=== PATIENT | female | born 1985 | race Caucasian/White ===

== ENCOUNTER → 2016-11-27 | Outpatient (CLI) | payer MEDICAID ==
[~2016-11-27] MED LIST: *ANUSOI; /BACL20TA PO; /CELE20CA OR; /DIVA50TA PO; /ESCI10TA PO; /ESOM40CA OR; /HALO1T OR; /IPRA3SP INH; /IPRAINH INH; /LINE60TA; /LORA10TA PO; /MIRT30TA OR; /MOM400 PO; /OMEP10CA OR; /ONDA4TA; /ROPI1TA PO; /ROPI25TA PO; /SUCR1TA; /SUCR1TA OR; /WARF5TA; /WARF5TA OR; ACET50TA PO; ACET65TA OR; ACIDTAB16 PO; ADDE10CA3; ALBU17IN2; ALBU17IN2 IN; ALBU17IN2 INH; ALBU2TA NEB; ALBUTEROL LIQ INH; ALCOHOL TOP; AMIT100T OR; AMO500; AMOXICILLIN; ASCO250C PO; ASCO250T PO; ATIV0.5T; ATIV0.5T3 PO; ATIV1TAB10 PO; ATIV1TAB2; ATIV1TAB2 OR; ATROVENT0.02% INH; AUGM875T27 PO; AVELOX PO; Ambien OR; Amoxicillin/Clavulanate Potas PO; Ativan OR; BACITAB PO; BACL10TA PO; BACL10TA2 PO; BACT400T OR; BACT800T OR; BACT800T5 PO; BACTRIMDS; BACTRIMDS PO; BACTROBAN; BENA25CA PO; BENA25CA2 PO; BISA10SU30 PR; BUTRAN TOP; CEFD1CAP8 PO; CEFD300CAP PO; CEFT500T PO; CEPH500T PO; CIPR25SS OR; CIPR500T19 OR; CIPRO500 PO; CLAR5CHW; CLAR5CHW OR; CLARITAN OR; CLARITIN10; CLARITIN10 PO; CLEO300C; CLIN300C OR; CLON0.5T PO; CLON2TAB OR; COLA100C PO; COLA50CA3 PO; COUM10TA; COUMADIN PO; CYCL10TA3 PO; CYCL5TAB PO; DALMANE; DALMANE OR; DANA200C; DAPTOMYCIN IV; DARVOCET-N PO; DEPA250T2; DEPA250T2 PO; DEPA250T32 PO; DEPA500T2 PO; DEPAKENE; DICLOFENAC SODIUM PR; DIFL50TA OR; DIFLUC150 PO; DIPH25CA PO; DIVA250T PO; DIVA250T7 PO; DIVA500T3 PO; DOCQ100C PO; DOCU100C PO; DOXE50CA2 OR; DOXY20TA OR; DRISDOL PO; ENOX40SY; ENOX40SY SC; ESCI10TA2 PO; FLAGYL500 PO; FLEEENE4 PR; FLUPHENAZINE PO; GEOD20CA14; GEOD40CA; GEODON20; GLUC1000; GLUC1000 OR; GLUC1VL SC; GLUC4CHW PO; GLUCULTRA TOPICAL; HABITROL2 TOPICAL; HALC0.25 OR; HUMA100I SC; HUMALOG SC; HYDR-3713 PO; HYDR5OI TOP; IBUP800T; IMIT100T; IMITREX100; INSULANT; INSULANT SC; INSULIN SQ; IPRASOL4 NEB; JANT7.5T; KEFL500C OR; KEFL500C7 PO; KEFLEX; KEFLEX500; KEPPRA PO; KLON0.5T OR; KLON0.5T PO; KLON1TAB OR; LAMI25TA PO; LAMO100T PO; LAMO10TA PO; LAMO1TAB PO; LAMO25TA2 PO; LANCETDEV -; LANTINJ4 SC; LANTUS SC; LEVA1.256 INH; LEVA12INH INH; LEVA25SO PO; LEVA750T OR; LEVA750T PO; LEVAQUI500; LEVAQUI500 PO; LIDO1DIS2 TD; LIORESAL PO; LORA-376 PO; LORA0.5T; LORA10TA2 PO; LORA1TAB OR; LORA1TAB12 PO; LORA2TA PO; LORA2TAB; LORA2TAB OR; LORAT; LORATIDINE OR; LOVENOX SC; Lantus SC; Lovenox SC; MAG400TA PO; MAXA10TA17 OR; MELA10TA PO; MELA1TAB15 PO; METF750T OR; METFORM100 PO; METFORM500 PO; METFORMIN OR; METO10TA2 OR; METO5TAB2; MIDOL; MORP15TA2 PO; MORP15TA4 OR; MORP15TASA PO; MORP30TA4 OR; MORP30TASA PO; MUCI600T34 PO; Metformin OR; NEUR100C OR; NEUR300C; NEUR400C; NEUR600T OR; NEURONTIN OR; NICO21DI4 TD; NUED20CA PO; NYAM10003 TOP; NYST100024 TOP; NYST10006 TOP; NYST10CR TOP; NYSTATINP; NYSTPOW4 TOP; OLAN10TA2 PO; OLAN5ZYD PO; OMEP40CA2 PO; ONDA1TAB15 PO; OXYC-208 PO; OXYC-274 PO; OXYC30TA4 PO; OXYCO5TA PO; PARO25TAB OR; PAXI10TA OR; PAXI20TA; PAXI20TA OR; PAXI30TA; PAXI40TA; PAXIL; PAXIL40; PERC5TAB8; PERC5TAB8 OR; PERC7.5T8 OR; PHEN 25 OR; PHEN 25 PO; PHENERGAN; PRED20TAB PO; PREG100CA OR; PREV15CA OR; PREV30CA6 PO; PRIL40CA; PRILOSECOT PO; PROT1TAB2 PO; PROV90AE; PROVERA10 PO; PULM0.5S IN; REME45TA OR; ROBA750T4 PO; ROCE1INJ IJ; ROPI0.25 PO; ROPI1TAB PO; ROXI1TAB2 PO; SAVE50TA PO; SAVELLA OR; SAVELLA PO; SENO8.6T9 PO; SEROQUE200; SEVELLA; SLO-MAG PO; TERAZOL3 VAGINALLY; TRAM50TA2 OR; TRAZ100T OR; TRAZO50TA PO; TYLE325T5 PO; TYLENOL; ULTRAM50 PO; VALI10TA OR; VALI5TAB OR; VANCOMYCIN IV; VENTAER IN; VICO5TAB; VICO5TAB OR; VICODIN OR; VICODIN PO; VITA1TAB23 PO; VITMTA PO; VOLT1GEL2 TOP; VOLT1GEL24 TOP; VOLTAREN PO; WARF1TAB OR; WARF5TAB66 PO; WARF7.5T17 PO; XANA0.25 PO; XARE20TA PO; XOPE1.252 IN; ZANA4TAB PO; ZANA6CAP PO; ZANT150T; ZANT150T OR; ZOFR20TA PO; ZOFR4SOL PO; ZOFR4TAB3 PO; ZOFR8TAB OR; ZYPR10TA PO; [UNRECOGNIZED DRUG - CODE]; [UNRECOGNIZED DRUG - CODE] IV; [UNRECOGNIZED DRUG - CODE] PO; [UNRECOGNIZED DRUG - CODE] TOP; [UNRECOGNIZED DRUG - OTHER]; [UNRECOGNIZED DRUG - OTHER]; [UNRECOGNIZED DRUG - OTHER] PO; [UNRECOGNIZED DRUG - OTHER] PO; claritan; insulin humalog; savella; savella OR
[2016-11-27 13:18] LABS: BASO % 0.6 % (0.0-1.0); EOS # 0.1 K/mm3 (0.0-0.50); EOS % 1.6 % (0.0-3.0); LARGE UNSTAINED CELL # 0.1 K/mm3 (0.0-0.4); LARGE UNSTAINED CELL % 1.3 % (0.0-4.0); LYMPH # 2.2 K/mm3 (1.5-6.5); LYMPH % 29.9 % (24.0-44.0); MEAN CORPUSCULAR HEMOGLOBIN 30.9 pg (27.0-33.0); MEAN CORPUSCULAR HGB CONC 32.7 g/dl (32.0-36.5); MEAN CORPUSCULAR VOLUME 94.5 fl (80.0-96.0); MONO # 0.4 K/mm3 (0.0-0.8); MONO % 6.1 % (0.0-5.0); NEUTROPHILS # 4.3 K/mm3 (1.8-7.7); NEUTROPHILS % 60.5 % (36.0-66.0); PLATELET COUNT, AUTOMATED 256 k/mm3 (150-450); RED CELL DISTRIBUTION WIDTH 13.7 % (11.5-14.5); WHITE BLOOD COUNT 7.1 K/mm3 (4.0-10.0)
[2016-11-27 13:58] LABS: ALBUMIN 3.9 GM/DL (3.2-5.2); ALBUMIN/GLOBULIN RATIO 1.05 (1.00-1.93); ALKALINE PHOSPHATASE 38 U/L (45-117); ALT/SGPT 33 U/L (12-78); ANION GAP 7 MEQ/L (8-16); AST/SGOT 34 U/L (15-37); BILIRUBIN,TOTAL 0.3 MG/DL (0.2-1.0); BLOOD UREA NITROGEN 15 MG/DL (7-18); CALCIUM LEVEL 8.8 MG/DL (8.5-10.1); CARBON DIOXIDE LEVEL 28 MEQ/L (21-32); CHLORIDE LEVEL 105 MEQ/L (98-107); CHOLESTEROL LEVEL 144 MG/DL (<200); CREATININE FOR GFR 0.74 MG/DL (0.55-1.02); GLOMERULAR FILTRATION RATE > 60.0 (>60); GLUCOSE, FASTING 121 MG/DL (70-105); POTASSIUM SERUM 4.9 MEQ/L (3.5-5.1); SODIUM LEVEL 140 MEQ/L (136-145); TOTAL PROTEIN 7.6 GM/DL (6.4-8.2); TRIGLYCERIDES LEVEL 81 MG/DL (<150)
== END ==
LOC: M LAB 12:11
PROVIDERS: ATTEND Nurse Practitioner Family
DX: D68.59 Other primary thrombophilia (principal); E11.9 Type 2 diabetes mellitus without complications

== ENCOUNTER → 2016-12-21 | Outpatient (CLI) | payer MEDICAID | LOC: M PT 14:26 | PROVIDERS: ATTEND Nurse Practitioner Family | DX: G82.50 Quadriplegia, unspecified (principal) | CPT/HCPCS: 97162; G8978; G8979; G8980 ==

== ENCOUNTER → 2017-02-26 | Outpatient (CLI) | payer MEDICAID ==
[~2017-02-26] MED LIST changes: +BENA25CA4 PO; -COLA100C PO; +COLA100C3 PO
[2017-02-26 13:21] LABS: BASO # 0.1 K/mm3 (0.0-0.2); BASO % 0.8 % (0.0-1.0); EOS # 0.1 K/mm3 (0.0-0.50); EOS % 0.9 % (0.0-3.0); LARGE UNSTAINED CELL # 0.1 K/mm3 (0.0-0.4); LARGE UNSTAINED CELL % 0.7 % (0.0-4.0); LYMPH # 1.8 K/mm3 (1.5-6.5); LYMPH % 24.9 % (24.0-44.0); MEAN CORPUSCULAR HEMOGLOBIN 30.9 pg (27.0-33.0); MEAN CORPUSCULAR HGB CONC 32.7 g/dl (32.0-36.5); MEAN CORPUSCULAR VOLUME 94.4 fl (80.0-96.0); MONO # 0.5 K/mm3 (0.0-0.8); MONO % 6.7 % (0.0-5.0); NEUTROPHILS # 4.7 K/mm3 (1.8-7.7); PLATELET COUNT, AUTOMATED 283 k/mm3 (150-450); RED CELL DISTRIBUTION WIDTH 13.2 % (11.5-14.5); WHITE BLOOD COUNT 7.1 K/mm3 (4.0-10.0)
[2017-02-26 14:02] LABS: ALBUMIN 3.9 GM/DL (3.2-5.2); ANION GAP 9 MEQ/L (8-16); BLOOD UREA NITROGEN 14 MG/DL (7-18); CALCIUM LEVEL 9.4 MG/DL (8.5-10.1); CARBON DIOXIDE LEVEL 27 MEQ/L (21-32); CHLORIDE LEVEL 104 MEQ/L (98-107); CREATININE FOR GFR 0.74 MG/DL (0.55-1.02); GLOMERULAR FILTRATION RATE > 60.0 (>60); GLUCOSE, FASTING 124 MG/DL (70-105); PHOSPHORUS LEVEL 3.4 MG/DL (2.5-4.9); POTASSIUM SERUM 4.5 MEQ/L (3.5-5.1); SODIUM LEVEL 140 MEQ/L (136-145)
--- NOTE | 2017-02-26 15:09 | REP ---
CHEST PORTABLE: REASON: Preop. COMPARISON: 07/29/2016 FINDINGS: The technique utilized in obtaining the radiograph has magnified the cardiac silhouette and accentuated the interstitial markings. The superior mediastinal structures are midline. The cardiac silhouette is unremarkable in size, shape, and position. The diaphragmatic surfaces of the lungs are regular, and the costophrenic angles are clear. The pulmonary torres are clear. The imaged osseous structures are intact. IMPRESSION: There is no acute cardiopulmonary disease. A tracheostomy tube is in place unchanged. Signed by Drew Storey DO 02/26/2017 05:02 P
--- NOTE | 2017-02-27 00:08 | ECGEPIP ---
Stationary ECG Study [facility] Test Date: 2017-02-26 Pat Name: ROSEMARIE ANGUIANO Department: Room: - Gender: F Target Network Analyst: SALVADOR : 1985 Requested By: Gold Jules Order Number: [id number] Reading MD: Scott Jefferson Measurements Intervals [place] Rate: 88 P: 48 AR: 166 QRS: 30 QRSD: 82 T: 13 QT: 352 QTc: 426 Interpretive Statements SINUS RHYTHM WITH SINUS ARRHYTHMIA LOW QRS VOLTAGE IN THE PRECORDIAL LEADS NONSPECIFIC T-WAVE ABNORMALITY COMPARED TO THE LAST 3 TRACINGS, HEART RATE IS NOW SLOWER Electronically Signed On 02-27-2017 0:08:29 EDT by Scott Jefferson
== END ==
LOC: M LAB 12:23
PROVIDERS: ATTEND Dentist Oral and Maxillofacial Surgery
DX: Z01.818 Encounter for other preprocedural examination (principal)

== ENCOUNTER → 2017-02-28 | Outpatient (REF) | payer MEDICAID | LOC: M LAB REF 15:10 | PROVIDERS: ATTEND Dentist Oral and Maxillofacial Surgery | DX: Z01.812 Encounter for preprocedural laboratory examination (principal) ==

== ENCOUNTER → 2017-03-12 | Day surgery (SDC) | payer MEDICAID ==
[~2017-03-12] VITALS: Ht 162.6 cm; Wt 112.5 kg
[~2017-03-12] MED LIST changes: +LIDOCAINE 2% INJ 100 MG/5 ML SDV (FOR ANES.) As Ordered ONE; +LIDOCAINE 2% W/ EPINEPHRINE 1.7 ML DENTAL INJ As Ordered ONE; +LR 1,000 ML IV ONE; +LR 1,000 ML IV SCH; +MIDAZOLAM INJ 2 MG/2 ML VIAL (J2250) As Ordered ONE; +MIDAZOLAM INJ 2 MG/2 ML VIAL (J2250) IV PRN; +ONDANSETRON 4MG/2ML VIAL (J2405) As Ordered ONE; +ONDANSETRON 4MG/2ML VIAL (J2405) IV PRN; +PROPOFOL 200 MG/20 ML VIAL As Ordered ONE; +ROCURONIUM BROMIDE 50 MG/5 ML VIAL As Ordered ONE; +fentaNYL 100 MCG/2 ML INJECTION (J3010) As Ordered ONE
[2017-03-12 06:49] LABS: CONTROL LINE HCG INT CTR LINE PRESENT
[2017-03-12] MEDS: fentaNYL 100 MCG/2 ML INJECTION (J3010) IV PRN ×2 (09:35→09:40)
[2017-03-12 11:00] VITALS: BP 142/97
--- NOTE | 2017-03-12 23:18 | RO ---
DATE OF PROCEDURE: 03/12/2017 PREPROCEDURE DIAGNOSIS: Carious and nonrestorable teeth #7, 8, 9, 10, 11. POSTPROCEDURE DIAGNOSIS: Carious and nonrestorable teeth #7, 8, 9, 10, 11. OPERATIVE PROCEDURE: Surgical removal of teeth as listed, 7, 8, 9, 10, 11 and buccal alveoloplasty. SURGEON: Gold Jules DMD EDGE BASTER: ANESTHESIA: General endotracheal. INDICATION: This patient is a 31-year-old female referred by general dentist for removal of these broken down nonrestorable teeth in a patient with a past medical history significant for diabetes, traumatic brain injury. The patient is wheelchair bound with tracheostomy in place, significant anxiety, dystonia, esophagitis, gastroesophageal reflux disease (GERD), hematologic problems, major depression, neurologic disorder, psychoses and patient is a quadriplegic with upper respiratory problems. The patient felt necessary to have this procedure performed in the operating room under general anesthesia. DESCRIPTION OF PROCEDURE: The patient was brought to the OR per anesthesia, placed supine upon the OR table. Wherein general anesthesia was undertaken by way of the tracheostomy without difficulty. After usual sterile prep and drape for intraoral procedure was performed, a throat pack was placed. 2% Xylocaine with 1:1,000 epinephrine was injected by way of infiltration fashion of approximately 3.5 mL buccal and palatally along the surgical site. #15 scalpel blade used to make a full thickness mucoperiosteal incision, carried down the area along the buccal sulcular gingiva of the aforementioned teeth. Buccal flap was then raised, the periosteal elevator exposing the buccal bone supporting the top of the teeth. Buccal bone was then removed as necessary for access and to mobilize the teeth. The teeth were then elevated and delivered without difficulty. The buccal bone was smooth. Alveoloplasty performed as necessary. The sockets were curetted, irrigated copiously, then closed with #3-0 gut continuous interlocking suture. At the termination of the procedure, the oropharynx was inspected, found to be free of debri. The throat pack was removed and the patient was awakened per anesthesia. ESTIMATED BLOOD LOSS: Approximately 5 mL. FLUIDS: 500 mL of crystalloid solution. COUNTS: Needle and sponge counts were correct. Teeth were sent for identification only to pathology. DISPOSITION: The patient was awakened by anesthesia since this was a general by way of trach. The patient was taken to the recovery room breathing spontaneously in stable condition.
== END | disposition home or self-care (01) ==
LOC: M SDC 05:42 → EEVIPCON 10:30
PROVIDERS: ATTEND Dentist Oral and Maxillofacial Surgery
DX: K02.9 Dental caries, unspecified (principal); E11.9 Type 2 diabetes mellitus without complications; G82.50 Quadriplegia, unspecified; G93.1 Anoxic brain damage, not elsewhere classified; G24.9 Dystonia, unspecified; F44.4 Conversion disorder with motor symptom or deficit; Z93.0 Tracheostomy status; Z99.3 Dependence on wheelchair; Z79.4 Long term (current) use of insulin; Z88.1 Allergy status to other antibiotic agents; Z88.8 Allergy status to other drugs, medicaments and biological substances; Z79.02 Long term (current) use of antithrombotics/antiplatelets; D68.59 Other primary thrombophilia; F33.41 Major depressive disorder, recurrent, in partial remission; Z79.899 Other long term (current) drug therapy; Z87.820 Personal history of traumatic brain injury
CPT/HCPCS: 36415; 84703; 88300; D7210; D7310; D9223; J2250; J2405; J3010

== ENCOUNTER 2017-05-05 07:35 | Emergency (ER) | payer MEDICAID ==
[~2017-05-05] VITALS: Ht 162.6 cm; Wt 115.6 kg
[~2017-05-05 07:35] MED LIST changes: -ACIDTAB16 PO; +ACIDTAB7 PO; -COLA100C3 PO; +COLA100C5 PO; -DOCU100C PO; +DOCU100C16 PO; +KEFL500C17 PO; -KEFL500C7 PO; -LEVA750T PO; +LEVA750T7 PO; -LIDOCAINE 2% INJ 100 MG/5 ML SDV (FOR ANES.) As Ordered ONE; -LIDOCAINE 2% W/ EPINEPHRINE 1.7 ML DENTAL INJ As Ordered ONE; -LORA-376 PO; +LORA0.5T11 PO; -LR 1,000 ML IV ONE; -LR 1,000 ML IV SCH; -MIDAZOLAM INJ 2 MG/2 ML VIAL (J2250) As Ordered ONE; -MIDAZOLAM INJ 2 MG/2 ML VIAL (J2250) IV PRN; +MUCI600T37 PO; +NYST1POW9 TOP; -ONDA1TAB15 PO; +ONDA4TAB5 PO; -ONDANSETRON 4MG/2ML VIAL (J2405) As Ordered ONE; -ONDANSETRON 4MG/2ML VIAL (J2405) IV PRN; -PROPOFOL 200 MG/20 ML VIAL As Ordered ONE; -ROCURONIUM BROMIDE 50 MG/5 ML VIAL As Ordered ONE; +VOLT1GEL15 TOP; -VOLT1GEL24 TOP; -fentaNYL 100 MCG/2 ML INJECTION (J3010) As Ordered ONE
[2017-05-05] MEDS ORDERED: HYDR-3713 PO (08:10)
[2017-05-05] MEDS ORDERED: MORPHINE 4 MG/ML 1ML SYRINGE IV ONE ×2 (08:15→11:00)
[2017-05-05] MEDS ORDERED: LORA0.5T11 PO (08:20)
[2017-05-05] MEDS ORDERED: TIZA4CAP3 PO (08:20)
[2017-05-05 08:37] LABS: BASO # 0.1 K/mm3 (0.0-0.2); BASO % 0.9 % (0.0-1.0); EOS # 0.2 K/mm3 (0.0-0.50); EOS % 2.4 % (0.0-3.0); LARGE UNSTAINED CELL # 0.2 K/mm3 (0.0-0.4); LARGE UNSTAINED CELL % 2.1 % (0.0-4.0); LYMPH # 2.1 K/mm3 (1.5-6.5); LYMPH % 29.3 % (24.0-44.0); MEAN CORPUSCULAR HEMOGLOBIN 30.6 pg (27.0-33.0); MEAN CORPUSCULAR HGB CONC 32.8 g/dl (32.0-36.5); MEAN CORPUSCULAR VOLUME 93.5 fl (80.0-96.0); MONO # 0.5 K/mm3 (0.0-0.8); MONO % 6.9 % (0.0-5.0); NEUTROPHILS # 4.2 K/mm3 (1.8-7.7); NEUTROPHILS % 58.4 % (36.0-66.0); PLATELET COUNT, AUTOMATED 300 k/mm3 (150-450); RED CELL DISTRIBUTION WIDTH 13.2 % (11.5-14.5); WHITE BLOOD COUNT 7.2 K/mm3 (4.0-10.0)
[2017-05-05 08:43] LABS: INR 1.39
[2017-05-05 08:45] LABS: ANION GAP 8 MEQ/L (8-16); BLOOD UREA NITROGEN 16 MG/DL (7-18); CALCIUM LEVEL 8.8 MG/DL (8.5-10.1); CARBON DIOXIDE LEVEL 25 MEQ/L (21-32); CHLORIDE LEVEL 105 MEQ/L (98-107); CREATININE FOR GFR 0.74 MG/DL (0.55-1.02); GLOMERULAR FILTRATION RATE > 60.0 (>60); GLUCOSE, FASTING 163 MG/DL (70-105); SODIUM LEVEL 138 MEQ/L (136-145)
--- NOTE | 2017-05-05 08:53 | REP ---
CHEST, TWO VIEWS: COMPARISON: 02/26/2017. There is no evidence of acute infiltrate. No pleural effusion is seen. The heart is normal in size. The mediastinal silhouette is unremarkable. The visualized osseous structures are intact. Tracheostomy tube is noted in place. IMPRESSION: No acute pulmonary disease. Signed by Roel Weber MD 05/05/2017 05:35 P
[2017-05-05] MEDS ORDERED: ISOVUE-370 76% 100ML VIAL (Q9967) As Ordered ONE (09:46)
--- NOTE | 2017-05-05 11:32 | REP ---
CT ANGIO CHEST: HISTORY: Chest pain. CONTRAST: Isovue 370, 75 mL. The examination is limited secondary to technical difficulty. There are no filling defects in the main or proximal right and left pulmonary arteries. Branches distal to the proximal right and left pulmonary arteries are very poorly seen. Emboli cannot be excluded in these vessels. The lungs are clear. There is no pleural effusion. There is no mediastinal mass. The heart is normal in size. IMPRESSION: Very limited examination demonstrating no pulmonary embolism in the main or proximal right and left pulmonary arteries. Signed by Ken Cruz MD 05/05/2017 11:37 A
[2017-05-05 14:23] VITALS: BP 124/78
--- NOTE | 2017-05-05 21:46 | ECGEPIP ---
Stationary ECG Study [facility] - ED Test Date: 2017-05-05 Pat Name: ROSEMARIE ANGUIANO Department: Room: - Gender: F Child Protective Investigator: gonzalo : 1985 Requested By: LAITH Zapien Order Number: [id number] Reading MD: Zayda Calle Measurements Intervals [place] Rate: 121 P: 42 VT: 171 QRS: 18 QRSD: 79 T: 44 QT: 420 QTc: 596 Interpretive Statements SINUS TACHYCARDIA NONSPECIFIC T-WAVE ABNORMALITY ABNORMAL RHYTHM ECG INCREASED RATE 02/26/17 Electronically Signed On 05-05-2017 21:45:48 EDT by Zayda Calle
--- NOTE | 2017-05-05 21:59 | ECGEPIP ---
Stationary ECG Study [facility] - ED Test Date: 2017-05-05 Pat Name: ROSEMARIE ANGUIANO Department: Room: - Gender: F Fur Mixer Operator: pratik : 1985 Requested By: LAITH Zapien Order Number: [id number] Reading MD: Zayda Calle Measurements Intervals [place] Rate: 98 P: 36 [place]: 176 QRS: 13 QRSD: 82 T: 17 QT: 332 QTc: 425 Interpretive Statements SINUS RHYTHM LOW QRS VOLTAGE IN PRECORDIAL LEADS PRWP NSTTW ABNORMALITY Electronically Signed On 05-05-2017 21:58:58 EDT by Zayda Calle
== END 2017-05-05 14:44 | disposition home or self-care (01) ==
LOC: M ED 07:35 → EDBD 07:35 → M ED 14:44
DX: R07.89 Other chest pain (principal); E11.9 Type 2 diabetes mellitus without complications; J45.909 Unspecified asthma, uncomplicated; E28.2 Polycystic ovarian syndrome; Z86.718 Personal history of other venous thrombosis and embolism; Z88.1 Allergy status to other antibiotic agents; Z91.048 Other nonmedicinal substance allergy status; Z79.4 Long term (current) use of insulin; Z79.899 Other long term (current) drug therapy
CPT/HCPCS: 36415; 71020; 71275; 80048; 80164; 82550; 82553; 83880; 85025; 85610; 85730; 93005; 93041; 94760; 96374; 96376; 99285; Q9967

== ENCOUNTER 2017-07-16 15:12 | Emergency (ER) | payer MEDICAID ==
[~2017-07-16] VITALS: Ht 162.6 cm; Wt 115.0 kg
[~2017-07-16 15:12] MED LIST changes: +TIZA4CAP3 PO
[2017-07-16] MEDS ORDERED: LATU20TA PO (15:26)
[2017-07-16] MEDS ORDERED: DEPA500T2 PO (15:26)
[2017-07-16] MEDS ORDERED: AUGM875T28 PO (18:16)
[2017-07-16] MEDS ORDERED: FLON1SPR (18:16)
[2017-07-16 18:28] VITALS: BP 136/88
== END 2017-07-16 18:30 | disposition home or self-care (01) ==
LOC: M ED 15:12
DX: J01.00 Acute maxillary sinusitis, unspecified (principal); E11.9 Type 2 diabetes mellitus without complications; G93.1 Anoxic brain damage, not elsewhere classified; Z79.4 Long term (current) use of insulin; Z79.899 Other long term (current) drug therapy; Z91.89 Other specified personal risk factors, not elsewhere classified; Z88.8 Allergy status to other drugs, medicaments and biological substances; Z88.1 Allergy status to other antibiotic agents

== ENCOUNTER 2017-09-07 12:23 | Inpatient (IN) | payer MEDICAID ==
[~2017-09-07] VITALS: Ht 162.6 cm; Wt 120.7 kg
[~2017-09-07 12:23] MED LIST changes: +AUGM875T28 PO; +FLON1SPR; +LATU20TA PO
--- NOTE | 2017-09-07 12:56 | REP ---
Clinical: Dyspnea. Cough . Comparison: 05/05/2017 . Findings: The mediastinum and cardiac silhouette are stable and within normal limits for portable technique. Tracheostomy overlies the airway and appears stable. The lung torres are clear without acute consolidation, effusion, or pneumothorax. Skeletal structures are intact. Impression: No acute cardiopulmonary process appreciated. Signed by Eben Alvarez MD 09/07/2017 12:47 P
[2017-09-07 13:10] LABS: BASO # 0.1 10^3/uL (0.0-0.2); BASO % 0.7 % (0.0-1.0); EOS # 0.1 10^3/uL (0.0-0.50); IMMATURE GRANULOCYTE % 0.2 % (0-0); LYMPH # 1.8 10^3/uL (1.5-4.5); LYMPH % 22.4 % (24.0-44.0); MEAN CORPUSCULAR HEMOGLOBIN 29.6 pg (27.0-33.0); MEAN CORPUSCULAR HGB CONC 32.5 g/dl (32.0-36.5); MEAN CORPUSCULAR VOLUME 91.1 fl (80.0-96.0); MONO # 0.6 10^3/uL (0.0-0.8); MONO % 7.6 % (0.0-5.0); NEUTROPHILS # 5.5 10^3/uL (1.8-7.7); NEUTROPHILS % 68.1 % (36.0-66.0); PLATELET COUNT, AUTOMATED 327 10^3/uL (150-450); RED CELL DISTRIBUTION WIDTH 13.1 % (11.5-14.5)
[2017-09-07] MEDS ORDERED: MORPHINE 2 MG/ML 1ML SYRINGE IV ONE (13:15)
[2017-09-07] MEDS ORDERED: NS 1,000 ML IV ONE (13:15)
[2017-09-07 13:35] LABS: ALBUMIN 3.6 GM/DL (3.2-5.2); ALKALINE PHOSPHATASE 46 U/L (45-117); ALT/SGPT 21 U/L (12-78); ANION GAP 12 MEQ/L (8-16); AST/SGOT 10 U/L (7-37); BILIRUBIN,DIRECT < 0.1 MG/DL (0.0-0.2); BILIRUBIN,TOTAL 0.3 MG/DL (0.2-1.0); BLOOD UREA NITROGEN 12 MG/DL (7-18); CALCIUM LEVEL 8.8 MG/DL (8.5-10.1); CARBON DIOXIDE LEVEL 24 MEQ/L (21-32); CHLORIDE LEVEL 104 MEQ/L (98-107); CREATININE FOR GFR 0.74 MG/DL (0.55-1.02); GLOMERULAR FILTRATION RATE > 60.0 (>60); GLUCOSE, FASTING 208 MG/DL (70-105); SODIUM LEVEL 140 MEQ/L (136-145); TOTAL PROTEIN 7.2 GM/DL (6.4-8.2)
[2017-09-07 13:41] LABS: CONTROL LINE HCG INT CTR LINE PRESENT
[2017-09-07] MEDS ORDERED: ONDANSETRON 4MG/2ML VIAL (J2405) IV ONE (13:45)
[2017-09-07] MEDS: LEVALBUTEROL 1.25 MG/0.5 ML CONCENTRATE NEB NEB PRN ×2 (14:03→14:04)
[2017-09-07] MEDS ORDERED: ISOVUE-370 76% 100ML VIAL (Q9967) As Ordered ONE (14:28)
--- NOTE | 2017-09-07 16:15 | REP ---
Clinical: Shortness of breath. History of pulmonary embolus. Technique: Axial contrast enhanced images from the thoracic inlet to the upper abdomen using 100 ml Isovue 370 intravenous contrast material with multiplanar MIP re-formations. Comparison: 05/05/2017. Findings: Examination is limited by respiratory motion artifact. While no significant pulmonary emboli are identified in the main and first/second order pulmonary arteries, small emboli to the distal branches in the right and left lower lobes cannot definitively be excluded and may represent acute and/or chronic changes given the patient's history of prior pulmonary embolus. The lung torres are clear and without consolidation, pleural effusion or pneumothorax. Tracheobronchial tree is patent. No adenopathy. Mediastinum demonstrates normal thoracic aorta and heart/pericardium. Impression: 1. Somewhat limited examination. No definite pulmonary embolus in the main and first/second order pulmonary arteries although small acute and/or chronic emboli in terminal branches of the lower lobes cannot be excluded. 2. No acute mediastinal or pleuroparenchymal process otherwise appreciated. Signed by Eben Alvarez MD 09/07/2017 04:06 P
[2017-09-07] MEDS ORDERED: IPRATROPIUM 0.5MG/ALBUTEROL 2.5MG INH SOL UD 3ML (DUONEB)(J7620) NEB PRN (17:15)
[2017-09-07] MEDS ORDERED: GLUCOSE 4 GM CHEW TABLET PO PRN (17:30)
[2017-09-07] MEDS ORDERED: GLUCAGON FOR INJ 1 MG VIAL (J1610) SC PRN (17:30)
[2017-09-07] MEDS ORDERED: DEXTROSE 50% 50 ML SYRINGE IV PRN (17:30)
[2017-09-07] MEDS ORDERED: INSULANT SC (17:43)
[2017-09-07] MEDS ORDERED: CITA10TA5 PO (17:43)
[2017-09-07] MEDS ORDERED: LORA1TAB12 PO (17:43)
[2017-09-07] MEDS ORDERED: REQU1TAB15 PO (17:43)
[2017-09-07] MEDS ORDERED: NORC1TAB4 PO (17:44)
[2017-09-07] MEDS ORDERED: FLON1SPR (17:44)
[2017-09-07] MEDS ORDERED: NORCO, ANEXSIA 5/325MG TABLET (HYDROcodone/ACETAMINOPHEN) PO PRN (18:00)
[2017-09-07] MEDS ORDERED: DOCUSATE SODIUM 100 MG CAP PO PRN (18:00)
[2017-09-07] MEDS ORDERED: LEVALBUTEROL 1.25 MG/0.5 ML CONCENTRATE NEB INH PRN (18:00)
[2017-09-07] MEDS ORDERED: guaiFENesin ER 600 MG TAB PO PRN (18:00)
[2017-09-07] MEDS ORDERED: NYSTATIN 100,000 UNITS/GM TOPICAL PWD 15 GM TOP PRN (18:00)
[2017-09-07] MEDS ORDERED: ONDANSETRON 4 MG TAB (S0181) PO PRN (18:00)
--- NOTE | 2017-09-07 18:13 | HPEPDOC ---
General Date of Admission 09/07/2017 Primary Care Physician: Ray Britton MD Attending Physician: NIMCO HOYT MD Chief Complaint The patient is a 32-year-old female admitted with a reason for visit of Diff Breathing. Source: Patient, Family, RN notes reviewed, Old records Exam Limitations: Language barrier (Tracheostomy) Timing/Duration: 24 hours Associated Symptoms: Cough, Shortness of breath, Weakness, Dizziness History of Present Illness Ms. Ayon is a 32-year-old female who presents to [facility]'s Emergency Department with shortness of breath and cough. Patient is accompanied by her psych specialist. Past medical history is significant for: diabetes mellitus type II, factor V Leiden heterozygous with protein C deficiency, pulmonary embolism and deep venous thrombosis, depression, recurrent suicidality, polycystic ovarian syndrome, non-alcoholic steatohepatitis, anxiety, post-traumatic stress disorder , muscle spasms, mood swings, pilonidal cyst abscess, impacted tooth, acute appendicitis, recurrent urinary tract infection, hidradenitis of right thigh and left breast, seroma of right thigh, abscess of left thigh and axilla, necrobiosis lipoidica diabeticorum. Residential Real Estate Agent states that patient awoke around 8AM and was not feeling well. She requested a Tylenol and went back to bed. She arose again at 11:30AM and had difficulty breathing with shortness of breath and cough. No pulse oximetry reading obtained at home. Residential Real Estate Agent obtained suctioning equipment and reported some resistance with attempting to clear tracheostomy which the psych specialist thinks might have been a mucous plug. Patient's breathing improved, but psych specialist still felt it prudent to be evaluated. EMS were called. Patient admits to left-sided anterior chest pain that radiates around to her back. Residential Real Estate Agent attributes it to her continual coughing. Patient further admits to itchy/watery eyes with runny nose, post-nasal drip, and sore throat. Admits to weakness, dizziness, stress urinary incontinence. Denies arthralgias , myalgias, fever, night sweats, chills, peripheral edema, lightheadedness, dysuria, hematuria, diarrhea, constipation, hematemesis, epistaxis, melena, hematochezia. Emergency department evaluation included CT angiogram of the chest which was negative for pulmonary embolism. Patient was slightly tachycardiac at 105. Positive for lactic acidosis. Chest x-ray was negative. Respiratory and blood cultures are pending. CBC and CMP were within normal range. HCG was negative. Hospitalist service was consulted and patient was admitted for further medical management. Home Medications Scheduled (Nuedexta 20-10 mg) 1 Cap Cap, 1 CAP PO BID, (Reported) (Flonase Allergy Relief) 50 Mcg/Act Spr, 50 MCG NA QHS Amoxicillin/Clavulanate Potas (Augmentin 875-125 mg) 1 Tab Tab, 875 MG PO BID Diphenhydramine HCl (Benadryl Allergy) 25 Mg Cap, 25 MG PO PRN, (Reported) Divalproex Sodium (Depakote ER) 500 Mg Tab, 1,000 MG PO BID, (Reported) Escitalopram Oxalate (Escitalopram Oxalate) 10 Mg Tab, 10 MG PO DAILY, (Reported ) Insulin Glargine (Lantus Solostar) 100 Unit/Ml Inj, 10 UNITS SC QHS Lamotrigine (Lamotrigine) 100 Mg Tab, 100 MG PO BID, (Reported) Loratadine (Loratadine) 10 Mg Tab, 10 MG PO DAILY, (Reported) Lorazepam (Lorazepam) 0.5 Mg Tab, 0.5 MG PO TID, (Reported) Lurasidone Hydrochloride (Latuda) 20 Mg Tab, 1 TAB PO DAILY, (Reported) Melatonin (Melatonin) 10 Mg Tab, 10 MG PO QHS, (Reported) Olanzapine (Olanzapine) 10 Mg Tab, 10 MG PO QHS, (Reported) Omeprazole (Omeprazole) 40 Mg Cap, 40 MG PO DAILY, (Reported) Rivaroxaban (Xarelto) 20 Mg Tab, 20 MG PO QHS, (Reported) Ropinirole Hydrochloride (Ropinirole HCl) 0.25 Mg Tab, 0.25 MG PO TID, (Reported ) Tizanidine Hydrochloride (Tizanidine HCl) 4 Mg Cap, 8 MG PO TID, (Reported) Scheduled PRN Docusate Sodium (Colace) 100 Mg Cap, 100 MG PO DAILY PRN for CONSTIPATION, ( Reported) Guaifenesin (Mucinex) 600 Mg Tab, 600 MG PO BID PRN for CHEST CONGESTION, ( Reported) Levalbuterol Hydrochloride (Levalbuterol HCl) 1.25 Mg/3 Ml Neb, 1.25 MG INH Q2H PRN for SHORTNESS OF BREATH, (Reported) Nystatin (Nystatin Powder) 100,000 Unit/Gm Pow, 1 DOSE TOP BID PRN for RASH/ ITCHING, (Reported) APPLY TO UNDER BREASTS AND GROIN AREA Ondansetron HCl (Zofran) 4 Mg Tab, 4 MG PO for NAUSEA OR VOMITING, (Reported) Allergies Coded Allergies: Pregabalin (Verified Allergy, Severe, THROAT SWELLING, 01/23/13) TAPE (Verified Allergy, Mild, PLASTIC TAPE CAUSES RASH, 05/05/17) Doxycycline (Unverified Allergy, Unknown, rash, 07/14/15) Tetracycline (Verified Adverse Reaction, Severe, SUICIDAL , 06/30/13) Varenicline (Verified Adverse Reaction, Intermediate, ALTERED MENTAL STATUS, 01/23/13) Linezolid (Verified Adverse Reaction, Mild, GI UPSET,DIARRHEA, 06/30/13) Past Medical History Medical History 1. Diabetes mellitus type II 2. Factor V Leiden heterozygous with protein C deficiency 3. Pulmonary embolism and deep venous thrombosis 4. Depression 5. Recurrent suicidality 6. Polycystic ovarian syndrome 7. Non-alcoholic steatohepatitis 8. Anxiety 9. Post-traumatic stress disorder 10. Muscle spasms 11. Mood swings 12. Pilonidal cyst abscess 13. Impacted tooth 14. Acute appendicitis 15. Recurrent urinary tract infection 16. Hidradenitis of right thigh and left breast 17. Seroma of right thigh 18. Abscess of left thigh and axilla 19. Necrobiosis lipoidica diabeticorum Surgical History 1. Tracheostomy with 6 tracheostomy changes 2. Fiberoptic bronchoscopy 5 3. Left port placement 4. Left radial arterial line placement 5. Upper endoscopy 6. Pilonidal cyst excision 7. Impacted tooth removal 8. Right thigh excisions 9. Intubation 10. Gastric biopsy due to prolonged intubation 11. Appendectomy 12. Surgical teeth removal 13. Cystourethroscopy 14. Excision of left breast abscess Family History Father: , 56, factor V Leiden/blood clots Mother: unknown health history Brothers - Eben: Alive, 34, healthy - Wiley: Alive, 33, unknown health history Step-sisters: 8 total, alive, unknown health history No children Social History Lives at home with psych specialist that has assumed the "mother" role. Uses wheelchair and is able to stand, but no ambulation. Admits to three dogs in the home. No children. Is socially active and attends all outings with her psych specialist. Has travelled extensively domestically. Former tobacco user, 1 PPD for 6 years, quit 6 years ago. Former alcohol use, 12-pack of beer several times a week. Denies illicit drug use. Review of Symptoms Constitutional: Reports: Weakness, Denies: Chills, Fever, Night Sweats ENT: Reports: Post Nasal Drip, Sore Throat, Denies: Head Aches, Epistaxis Skin: Denies: Rash, Lesions, Bruising Pulmonary: Reports: Dyspnea, Cough, Denies: Pleuritic Chest Pain Cardiovascular: Reports: Chest Pain (left anterior chest with radiation to back ), Denies: Edema, Lt Headedness Gastrointestinal: Denies: Nausea, Vomiting, Abdominal Pain, Diarrhea, Constipation, Melena, Hematochezia Genitourinary: Reports: Incontinence (stress), Denies: Dysuria, Hematuria Hematologic: Denies: Bruising, Bleeding Excessively Musculoskeletal: Denies: Neck Pain, Back Pain, Joint Pain, Muscle Pain Neurological: Reports: Weakness, Denies: Numbness Physical Examination General Exam: Positive: Alert, Cooperative, Other (patient is grubby-appearing) Eye Exam: Positive: PERRLA, Conjunctiva & lids normal, EOMI, Negative: Sclera icteric, Ptosis ENT Exam: Positive: Atraumatic, Mucous membr. moist/pink, Pharynx Normal, Tongue Midline, Nares Patent, Other ENT (tracheostomy with nonrebreather), Negative: Pharyngeal Edema Neck Exam: Positive: Supple, Negative: JVD, thyromegaly, +2 carotid pulse wo bruit, Lymphadenopathy Chest Exam: Positive: Clear to auscultation, Normal air movement, Negative: Rales, Rhonchi, Wheezing Heart Exam: Positive: Rate Normal, Tachycardic, Regular Rhythm, Normal S1, Normal S2, Negative: Gallops, Murmurs, Rubs Telemetry: Positive: Sinus, Tachycardia Abdomen Exam: Positive: BS Hypoactive, Soft, Negative: Tenderness, Hepatospenomegaly, Mass Extremity Exam: Positive: Normal pulses (tachycardic), Negative: Clubbing, Cyanosis, Edema, Tenderness, Swelling Skin Exam: Positive: Nl turgor and temperature, Lesion (multiple erythematous excoriated lesions noted on face, facial hairs present, hairs thinning, abdominal street present), Negative: Rash Neuro Exam: Negative: Normal Speech (tracheostomy) Other physical findings Chest x-ray IMPRESSION: No acute cardiopulmonary process appreciated. CT chest angiogram IMPRESSION: 1. Somewhat limited examination. No definite pulmonary embolus in the main and first/second order pulmonary arteries although small acute and/or chronic emboli in terminal branches of the lower lobes cannot be excluded. 2. No acute mediastinal or pleuroparenchymal process otherwise appreciated. Vital Signs Vital Signs Date Time Temp Pulse Resp B/P (MAP) Pulse Ox O2 Delivery O2 Flow Rate FiO2 09/07/17 15:45 98 22 113/59 (77) 99 Trach Collar 15.0 Laboratory Data Labs 24H Laboratory Tests 2 09/07/17 12:57: Immature Granulocyte % (Auto) 0.2H, White Blood Count 8.0, Red Blood Count 4.16 , Hemoglobin 12.3, Hematocrit 37.9, Mean Corpuscular Volume 91.1, Mean Corpuscular Hemoglobin 29.6, Mean Corpuscular Hemoglobin Concent 32.5, Red Cell Distribution Width 13.1, Platelet Count 327, Neutrophils (%) (Auto) 68.1H, Lymphocytes (%) (Auto) 22.4L, Monocytes (%) (Auto) 7.6H, Eosinophils (%) (Auto) 1.0, Basophils (%) (Auto) 0.7, Neutrophils # (Auto) 5.5, Lymphocytes # (Auto) 1.8, Monocytes # (Auto) 0.6, Eosinophils # (Auto) 0.1, Basophils # (Auto) 0.1, Immature Granulocyte # (Auto) 0.0, Nucleated Red Blood Cells % (auto) 0.0, Anion Gap 12, Glomerular Filtration Rate > 60.0, Lactic Acid Level 5.1*H, Calcium Level 8.8, Aspartate Amino Transf (AST/SGOT) 10, Alanine Aminotransferase (ALT/SGPT) 21, Alkaline Phosphatase 46, Total Bilirubin 0.3, Direct Bilirubin < 0.1, Total Creatine Kinase 88, Creatine Kinase MB 2.4, Creatine Kinase MB Relative Index 2.72, Troponin I < 0.02, Total Protein 7.2, Albumin 3.6, Albumin/Globulin Ratio 1.00, Thyroid Stimulating Hormone (TSH) 0.768 09/07/17 13:15: Human Chorionic Gonadotropin, Qual NEGATIVE CBC/BMP Laboratory Tests 09/07/17 12:57 Red Blood Count 4.16, Mean Corpuscular Volume 91.1, Mean Corpuscular Hemoglobin 29.6, Mean Corpuscular Hemoglobin Concent 32.5, Red Cell Distribution Width 13.1 , Neutrophils (%) (Auto) 68.1 H, Lymphocytes (%) (Auto) 22.4 L, Monocytes (%) ( Auto) 7.6 H, Eosinophils (%) (Auto) 1.0, Basophils (%) (Auto) 0.7, Neutrophils # (Auto) 5.5, Lymphocytes # (Auto) 1.8, Monocytes # (Auto) 0.6, Eosinophils # ( Auto) 0.1, Basophils # (Auto) 0.1 Microbiology Microbiology 09/07/17 Blood Culture, Received Pending 09/07/17 Respiratory Virus Panel (PCR) (MARIAN) - Final, Complete 09/07/17 Gram Stain - Final, Resulted 09/07/17 Sputum Culture, Resulted Pending Plan / VTE VTE Prophylaxis Ordered?: Yes (Xarelto 20mg QHS) Plan Plan Bronchitis with mucous plugging - Obtain respiratory panel, blood and sputum cultures - Consult ENT - Obtain labs: CBC with differential, BMP, CRP - Suction tracheostomy with saline - Administer DuoNebs - No need for steroids or antibiotics at this time - Continuous pulse oximetry, wean FiO2, titrate oxygen to 92% Chest pain - Admit to PCU - Obtain serial cardiac makers Diabetes mellitus, type II - Consistent carbohydrate diet - Continue home dose of Lantus Depression/anxiety/PTSD/recurrent suicidality - Continue home medication regimen - Place a sitter with instructions to keep patient's arms by her side which may require sitter to gently place patient's arms by her side Disposition Admit: Progressive care unit Anticipated hospitalization: 2 nights Attending: Dr. Wheeler Diet: Continue Current (Consistent carbohdyrate diet) Activity: Continue Current Respiratory: Wean Oxygen (Titrate to 92%, wean FiO2) Diagnostics: Check Labs, Repeat Labs in AM, Obtain Cultures Anticipated Discharge: Home EUGENIE MENDEZ-Marleny Sep 07, 2017 18:13
[2017-09-07] MEDS: HumaLOG INSULIN (NovoLOG) PER UNIT SC SCH (18:20)
[2017-09-07 20:57] VITALS: BP 179/108
[2017-09-07] MEDS ORDERED: LEVEMIR (INSULIN DETEMIR) 1 UNITS/0.01ML SC SCH (21:00)
[2017-09-07] MEDS ORDERED: OLANZapine 10 MG TAB PO SCH (21:00)
[2017-09-07] MEDS ORDERED: FLUTICASONE PROP 0.05% NASAL SPRAY 16 GM (FLONASE) SCH (21:00)
[2017-09-07] MEDS ORDERED: HumaLOG INSULIN (NovoLOG) PER UNIT SC SCH (21:00)
[2017-09-07] MEDS ORDERED: LURASIDONE 20 MG TAB (LATUDA) PO SCH (21:00)
[2017-09-07] MEDS ORDERED: RIVAROXABAN 20 MG TAB (XARELTO) PO SCH (21:00)
[2017-09-07] MEDS ORDERED: rOPINIRole 0.25 MG TAB(REQUIP) PO SCH (21:00)
[2017-09-07] MEDS: LORazepam 1 MG TAB PO SCH (21:52)
[2017-09-07] MEDS: DIVALPROEX 500MG *ER* TAB PO SCH (21:52)
[2017-09-07] MEDS: diphenhydrAMINE 25 MG CAP PO SCH (21:52)
[2017-09-07] MEDS: tiZANidine 4 MG TAB PO SCH (21:53)
[2017-09-07] MEDS: lamoTRIgine 100MG TAB PO SCH (21:53)
[2017-09-07] MEDS: IPRATROPIUM 0.5MG/ALBUTEROL 2.5MG INH SOL UD 3ML (DUONEB)(J7620) NEB SCH (23:40)
[2017-09-07 23:59] VITALS: BP 116/62
[2017-09-08] MEDS: IPRATROPIUM 0.5MG/ALBUTEROL 2.5MG INH SOL UD 3ML (DUONEB)(J7620) NEB SCH ×2 (02:00→07:21)
[2017-09-08 04:00] VITALS: BP 111/66
[2017-09-08 06:40] LABS: BASO # 0.1 10^3/uL (0.0-0.2); BASO % 0.8 % (0.0-1.0); EOS # 0.1 10^3/uL (0.0-0.50); EOS % 1.6 % (0.0-3.0); IMMATURE GRANULOCYTE % 0.3 % (0-0); LYMPH # 2.2 10^3/uL (1.5-4.5); LYMPH % 34.8 % (24.0-44.0); MEAN CORPUSCULAR HEMOGLOBIN 29.1 pg (27.0-33.0); MEAN CORPUSCULAR HGB CONC 31.8 g/dl (32.0-36.5); MEAN CORPUSCULAR VOLUME 91.6 fl (80.0-96.0); MONO # 0.6 10^3/uL (0.0-0.8); MONO % 9.8 % (0.0-5.0); NEUTROPHILS # 3.3 10^3/uL (1.8-7.7); NEUTROPHILS % 52.7 % (36.0-66.0); PLATELET COUNT, AUTOMATED 294 10^3/uL (150-450); WHITE BLOOD COUNT 6.2 10^3/uL (4.0-10.0)
[2017-09-08 07:16] LABS: ANION GAP 6 MEQ/L (8-16); BLOOD UREA NITROGEN 12 MG/DL (7-18); CALCIUM LEVEL 8.6 MG/DL (8.5-10.1); CARBON DIOXIDE LEVEL 31 MEQ/L (21-32); CHLORIDE LEVEL 103 MEQ/L (98-107); CREATININE FOR GFR 0.63 MG/DL (0.55-1.02); GLOMERULAR FILTRATION RATE > 60.0 (>60); GLUCOSE, FASTING 132 MG/DL (70-105); SODIUM LEVEL 140 MEQ/L (136-145)
[2017-09-08 07:58] VITALS: BP 133/101
[2017-09-08 07:59] VITALS: BP 138/95
[2017-09-08] MEDS ORDERED: OMEPRAZOLE 20 MG CAP PO SCH (09:00)
[2017-09-08] MEDS ORDERED: LORATADINE 10 MG TAB PO SCH (09:00)
[2017-09-08] MEDS ORDERED: CitaloPRAM (CeleXA) 10 MG TABLET PO SCH (09:00)
[2017-09-08] MEDS ORDERED: ENOXAPARIN 40 MG/0.4 ML SYRINGE (J1650) SC SCH (09:00)
[2017-09-08] MEDS: HumaLOG INSULIN (NovoLOG) PER UNIT SC SCH (09:35)
[2017-09-08] MEDS: lamoTRIgine 100MG TAB PO SCH (09:36)
[2017-09-08] MEDS: tiZANidine 4 MG TAB PO SCH (09:36)
[2017-09-08] MEDS: diphenhydrAMINE 25 MG CAP PO SCH (09:36)
[2017-09-08] MEDS: DIVALPROEX 500MG *ER* TAB PO SCH (09:36)
[2017-09-08] MEDS: LORazepam 1 MG TAB PO SCH (09:36)
[2017-09-08] MEDS ORDERED: LIDOCAINE 4% CREAM 5GM (LMX4) TOP ONE (10:15)
[2017-09-08 11:27] VITALS: BP 107/63
--- NOTE | 2017-09-08 13:25 | CR ---
DATE OF CONSULTATION: 10/07/2017 REQUESTING PHYSICIAN: Dr. Daniella Edward REASON FOR CONSULTATION: Possible tracheotomy change in a patient that was admitted for cough, shortness of breath, weakness, and dizziness. HISTORY OF PRESENT ILLNESS: On 09/07/2017 in the afternoon, the patient presented to [facility] with shortness of breath and cough. She was apparently accompanied by her director of accreditation. She has a history of diabetes mellitus type 2, factor V Leiden heterozygous with protein C deficiency, pulmonary embolism, deep vein thrombosis (DVT), depression, recurrent suicidality, polycystic ovarian syndrome, nonalcoholic steatohepatitis, anxiety, posttraumatic stress disorder (PTSD), muscle spasms, mood swings, pilonidal cyst abscess, impacted tooth, acute appendicitis, recurrent urinary tract infection (UTI), hidradenitis of the right thigh, left breast and seroma of the right thigh, abscess of the left thigh and axilla, necrobiosis lipoidica diabeticorum. The director of accreditation for the patient stated that on 09/07/2017 in the morning she was not feeling well. The patient took Tylenol and went back to bed. Arose again at 11:30 and had difficulty breathing, shortness of breath, and coughing. Assistant Plant Manager used suctioning equipment and reported some resistance with attempting to clear the tracheotomy. The patient's breathing improved and was taken to [facility] for further evaluation. She was admitted overnight with no desaturations. I was asked to consult on the patient to consider changing the tracheotomy tube, which apparently has not been changed in many years. The patient did have a CT angiogram, which was negative for pulmonary embolism. The patient apparently did have a little bit of lactic acidosis. Chest x-ray was negative. HOME MEDICATIONS: Included: - Nuedexta 20/10 mg one capsule by mouth twice a day - Flonase allergy relief 15 mcg actuated spray at night - Augmentin 875 mg by mouth twice a day - diphenhydramine 25 mg by mouth as needed - Depakote ER 500 mg tablet 1000 mg by mouth twice a day - loratadine 10 mg - lorazepam 0.5 mg tablet by mouth three times a day - melatonin 10 mg by mouth at night - omeprazole 40 mg caplet by mouth - Xarelto 20 mg by mouth at night - ropinirole hydrochloride 0.25 mg tablet by mouth three times a day - tizanidine hydrochloride 4 mg capsules 8 mg by mouth three times a day ALLERGIES: The patient is allergic to PREGABALIN, TAPE, MYOPLASTIC TAPE causes rash, DOXYCYCLINE causes rash, TETRACYCLINE apparently made her seem suicidal, VARENICLINE caused altered mental status, LINEZOLID gave her diarrhea. PAST MEDICAL HISTORY: Significant for: 1. Diabetes type 2. 2. Factor V Leiden heterozygous with protein C deficiency. 3. Pulmonary embolism with deep vein thrombosis (DVT). 4. Depression and recurrent suicidality. 5. Polycystic ovary disease. 6. Nonalcoholic steatohepatitis. 7. Anxiety. 8. Posttraumatic stress disorder (PTSD). 9. Muscle spasms. 10. Mood swings. 11. Pilonidal cyst. 12. Impacted tooth. 13. Acute appendicitis. 14. Recurrent urinary tract infection (UTI). 15. Hydradenitis of the right thigh and left breast. 16. Seroma of the right thigh. 17. Abscess of the left thigh and axilla. PAST MEDICAL HISTORY: Includes: 1. Tracheotomy. 2. Fiberoptic bronchoscopy times five. 3. Left port placement. 4. Left radial arterial line placement. 5. Upper endoscopy. 6. Pilonidal cyst excision. 7. Impacted tooth removal. 8. Right thigh excision. 9. Previous gastric biopsies. 10. Appendectomy. 11. Surgical teeth removal. 12. Cystourethroscopy. 13. Excision of left breast abscess. FAMILY HISTORY: Father at age 56, factor V Leiden blood clots. Mother unknown health history. SOCIAL HISTORY: The patient lives with caregiver. REVIEW OF SYSTEMS: Unobtainable. PHYSICAL EXAMINATION: The patient is in room 3225, bed 1. No acute distress. Sitter is at the bedside. She is obese. There is no otoscope to examine the ear canals. The external ear appeared normal and showed no discrete lesions. The patient's anterior oral cavity showed no discrete lesions. NECK: She has a trach, noncuffed #4 present and it was non-fenestrated. There is dark discolored gauze underneath the tracheotomy phalange. Chest x-ray was negative. CT angio was negative. PROCEDURE: After obtained informed consent over the telephone for tracheobronchoscopy, as well as tracheotomy change, as the caregiver was not present, this was done with the nurse witnessing the consent over the phone. This patient has had this multiple times. After obtaining consent for a tracheobronchoscopy, as well as tracheotomy change, the patient was in a semi seated position and a pillow was placed underneath the shoulders for extension of the neck. Next, the topical 4% Lidocaine was placed in the stoma site and then the flexible fiberoptic nasal endoscopy was passed through the tracheotomy site. There was a small mucous lining of the trachea anteriorly, nonobstructing. The jef and the main stem, right and left, were within normal limits. After this was done, the tracheotomy #4, non fenestrated was ready to be placed. After the other one was removed, another 1 mL of topical 4% lidocaine was placed to numb up the tracheotomy stomal site and a little bit of KY jelly was placed at the tip and the #4 stylet without fenestration was placed. She tolerated this well. Obturator was removed and given to the nurse to keep with the patient. Saturation was 90% with 40% trach collar blow by. The tracheotomy site was secured. There was no fresh collar to secure the trach and the nurse will change that later once it is available. IMPRESSION: Patient with multiple medical issues, initially presenting with some shortness of breath, possible mucous plugging. There was no acute plugging at this point in time on tracheal bronchoscopy. The trach was changed to a #4 non fenestrated. Passy Chery valve was placed back at the time. The patient also had bronchitis with probable mucous plugging. The patient had chest pain, being evaluated for other cardiac issues. Also, diabetes mellitus type 2, depression. PLAN: At this point, tracheotomy tube has been changed. There is no evidence of any obstruction. There is no purulent discharge noted in the tracheal bronchoscopy. Currently, tracheotomy site is stable. Would defer the rest of the medical management to the hospitalist, but at this point tracheotomy is clean and secure and has been changed. Thank you for involving me in the care of this patient. At this point, would recommend following up as needed and can be discharged from an ENT [id number] once all of her other medical issues have been resolved. Again, thank you for involving me in the care of this patient.
--- NOTE | 2017-09-08 14:29 | IPN ---
DATE: 09/08/2017 Barbara Pearce was seen in progressive care unit (PCU). This note supplements the pending note by Dr. Don, the resident. The patient has been seen by ENT, Dr. Hamm. His consultation was reviewed. He did a tracheobronchoscopy with a tracheotomy change, a #4 non fenestrated tracheotomy tube was placed. Oxygen saturation has been maintained greater than 90% for well over an hour since this. I have given orders for her to be discharged.
--- NOTE | 2017-09-08 18:01 | DS.PDOC ---
Discharge Summary General Date of Admission Sep 07, 2017 at 17:24 Date of Discharge 09/08/17 Discharge Summary Consults: ENT (Dr. Forte) Discharge diagnosis: Bronchitis with mucous plugging Secondary diagnosis: Chest pain, type 2 diabetes mellitus, depression, anxiety Hospital course: Patient was admitted on 09/07/17 with shortness of breath and cough. Initial evaluation showed a negative CT angiogram, negative chest x-ray. Patient was admitted for a bronchitis with mucous plugging. ENT was consulted for further evaluation. ENT evaluated patient, change tracheostomy tubing and cleared her for discharge. Progress note on date of discharge: Subjective: Patient seen for inpatient follow-up. Nurse states that patient has been doing good. She did have a little agitation this morning but was given Ativan. Objective: Vitals: Temperature 97.4, pulse 106, respiratory rate 18, blood pressure 107/63 , pulse ox 92% on trach collar Gen.: Patient awake, alert, does not appear to be in any acute distress Heart: Regular rate and rhythm, normal S1-S2. No murmurs, rubs, clicks or gallops Lungs: Clear to auscultation bilaterally. No wheezes, rales or rhonchi Abdomen: Active bowel sounds, soft, nontender, no masses to palpation Extremities: No pitting in either lower extremity Labs: CBC: White blood cells 6.2, hemoglobin and hematocrit 10.8/34.0, platelets 294 Chemistry: Sodium 140, potassium 4.0, chloride 103, carbon dioxide 31, BUN 12, creatinine 0.63, glucose 132, calcium 8.6 Cardiac markers: Total creatinine kinase 105, CK-MB 2.8, troponin I <0.02 C-reactive protein 1.28 Assessment: Patient is a 32-year-old female with bronchitis, possible mucous plugging in her trach tube. Her tracheostomy tube changed by ENT and she is clear for discharge at this time. Disposition: Discharge patient to home Follow-up: With Dr. Britton on 09/13/17 at 2 PM, ENT will call patient with appointment Activity: As tolerated Diet: As tolerated Medications on discharge: Acetaminophen/hydrocodone 1 tablet every 6 hours as needed for pain Citalopram 10 mg by mouth daily Diphenhydramine 25 mg by mouth twice a day Depakote ER 500 mg by mouth twice a day Docusate 100 mg by mouth daily as needed for constipation Flonase one spray nasal at bedtime Mucinex 600 mg by mouth twice a day as needed for chest congestion Lantus insulin 10 units subcutaneously at bedtime Lamotrigine 100 mg by mouth twice a day Levalbuterol 3 mL inhalation every 2 hours as needed for shortness of breath Loratadine 10 mg by mouth twice a day Lorazepam 1 mg by mouth 3 times a day Latuda 20 mg by mouth every evening at dinnertime Melatonin 10 mg by mouth daily at bedtime Nuedexta 1 capsule by mouth twice a day Nystatin powder topically twice daily as needed for rash/itching to under breasts and groin Olanzapine 10 mg by mouth daily at bedtime Omeprazole 40 mg by mouth daily Zofran 4 mg by mouth as needed for nausea or vomiting Xarelto 20 mg by mouth at bedtime Requip 0.5 mg by mouth at bedtime Tizanidine 8 mg by mouth 3 times a day Cc: Dr. Britton, Dr. Forte Time spent on discharge: 30 minutes Discharge Medications Scheduled (Nuedexta 20-10 mg) 1 Cap Cap, 1 CAP PO BID, (Reported) (Flonase Allergy Relief) 50 Mcg/Act Spr, 1 SPRAY NA QHS, (Reported) Citalopram Hydrobromide (Citalopram Hydrobromide) 10 Mg Tab, 10 MG PO DAILY, ( Reported) Diphenhydramine HCl (Benadryl Allergy) 25 Mg Cap, 25 MG PO BID, (Reported) Divalproex Sodium (Depakote ER) 500 Mg Tab, 500 MG PO BID, (Reported) Insulin Glargine (Lantus) 1 Units/0.01 Ml Susp, 10 UNITS SC QHS, (Reported) Lamotrigine (Lamotrigine) 100 Mg Tab, 100 MG PO BID, (Reported) Loratadine (Loratadine) 10 Mg Tab, 10 MG PO DAILY, (Reported) Lorazepam (Lorazepam) 1 Mg Tab, 1 MG PO TID, (Reported) Lurasidone Hydrochloride (Latuda) 20 Mg Tab, 20 MG PO QPM, (Reported) TAKES AT DINNERTIME Melatonin (Melatonin) 10 Mg Tab, 10 MG PO QHS, (Reported) Olanzapine (Olanzapine) 10 Mg Tab, 10 MG PO QHS, (Reported) Omeprazole (Omeprazole) 40 Mg Cap, 40 MG PO DAILY, (Reported) Rivaroxaban (Xarelto) 20 Mg Tab, 20 MG PO QHS, (Reported) Ropinirole Hydrochloride (Requip) 0.5 Mg Tab, 0.5 MG PO QHS, (Reported) Tizanidine Hydrochloride (Tizanidine HCl) 4 Mg Cap, 8 MG PO TID, (Reported) Scheduled PRN Acetaminophen/Hydrocodone ([place] 5-325 mg) 1 Tab Tab, 1 TAB PO Q6H PRN for PAIN, (Reported) Docusate Sodium (Colace) 100 Mg Cap, 100 MG PO DAILY PRN for CONSTIPATION, ( Reported) Guaifenesin (Mucinex) 600 Mg Tab, 600 MG PO BID PRN for CHEST CONGESTION, ( Reported) Levalbuterol Hydrochloride (Levalbuterol HCl) 1.25 Mg/3 Ml Neb, 1.25 MG INH Q2H PRN for SHORTNESS OF BREATH, (Reported) Nystatin (Nystatin Powder) 100,000 Unit/Gm Pow, 1 DOSE TOP BID PRN for RASH/ ITCHING, (Reported) APPLY TO UNDER BREASTS AND GROIN AREA Ondansetron HCl (Zofran) 4 Mg Tab, 4 MG PO for NAUSEA OR VOMITING, (Reported) Allergies Coded Allergies: Pregabalin (Verified Allergy, Severe, THROAT SWELLING, 01/23/13) TAPE (Verified Allergy, Mild, PLASTIC TAPE CAUSES RASH, 05/05/17) Doxycycline (Unverified Allergy, Unknown, rash, 07/14/15) Tetracycline (Verified Adverse Reaction, Severe, SUICIDAL , 06/30/13) Varenicline (Verified Adverse Reaction, Intermediate, ALTERED MENTAL STATUS, 01/23/13) Linezolid (Verified Adverse Reaction, Mild, GI UPSET,DIARRHEA, 06/30/13) GME ATTESTATION GME ATTESTATION My faculty preceptor for this patient encounter was physically present during the encounter and was fully available. All aspects of the patient interview, examination, medical decision making process, and medical care plan development were reviewed and approved by the faculty preceptor. The faculty preceptor is aware and concurs with the plan as stated in the body of this note and will attest to such by his/her cosignature. WILLIE ALCALA DO Sep 08, 2017 18:01
--- NOTE | 2017-09-09 13:43 | ECGEPIP ---
Stationary ECG Study [facility] - ED Test Date: 2017-09-07 Pat Name: ROSEMARIE ANGUIANO Department: Room: - Gender: F Supervisor Gar[employer]: radha : 1985 Requested By: SAM Fernandez Order Number: [id number] Reading MD: Aditya Jimenez Measurements Intervals [place] Rate: 131 P: 56 CA: 150 QRS: 14 QRSD: 95 T: 32 QT: 307 QTc: 454 Interpretive Statements SINUS TACHYCARDIA LOW QRS VOLTAGE IN PRECORDIAL LEADS POOR R WAVE PROGRESSION BASELINE ARTIFACT AFFECTS INTERPRETATION SIMILAR TO 05/05/17 Electronically Signed On 09-09-2017 13:42:51 EST by Aditya Jimenez
== END 2017-09-08 15:48 | disposition home or self-care (01) | DRG 144 ==
LOC: M ED 12:23 → M ED INP 17:24 → M PCU 20:37
PROVIDERS: ADMIT Hospitalist; ATTEND Family Medicine
PROC: 0B21XFZ Change Tracheostomy Device in Trachea, External Approach (ICD-10-PCS; principal; 2017-09-07)
DX: J40 Bronchitis, not specified as acute or chronic (principal); D68.2 Hereditary deficiency of other clotting factors; Z93.0 Tracheostomy status; K75.81 Nonalcoholic steatohepatitis (NASH); R45.851 Suicidal ideations; E11.9 Type 2 diabetes mellitus without complications; F41.9 Anxiety disorder, unspecified; F32.9 Major depressive disorder, single episode, unspecified; Z79.899 Other long term (current) drug therapy; Z79.4 Long term (current) use of insulin; Z88.8 Allergy status to other drugs, medicaments and biological substances; Z86.711 Personal history of pulmonary embolism; Z86.718 Personal history of other venous thrombosis and embolism; E28.2 Polycystic ovarian syndrome; F43.10 Post-traumatic stress disorder, unspecified

== ENCOUNTER → 2017-10-21 | Outpatient (CLI) | payer MEDICAID ==
[2017-10-21 16:36] LABS: ESTIMATED AVERAGE GLUCOSE 197 MG/DL (60-110)
== END ==
LOC: M RAD 14:12
DX: N64.4 Mastodynia (principal)
CPT/HCPCS: G0206

== ENCOUNTER 2017-11-07 13:33 | Emergency (ER) | payer MEDICAID ==
[2017-11-07] MEDS: LORazepam 2 MG/ML VIAL (J2060) IV (15:24)
[2017-11-07 15:29] LABS: BASO # 0.1 10^3/uL (0.0-0.2); BASO % 0.7 % (0.0-1.0); EOS # 0.1 10^3/uL (0.0-0.50); HEMATOCRIT 37.4 % (36.0-47.0); HEMOGLOBIN 12.2 g/dl (12.0-16.0); IMMATURE GRANULOCYTE % 0.4 % (0-0); LYMPH % 24.7 % (24.0-44.0); MEAN CORPUSCULAR HEMOGLOBIN 29.5 pg (27.0-33.0); MEAN CORPUSCULAR HGB CONC 32.6 g/dl (32.0-36.5); MEAN CORPUSCULAR VOLUME 90.6 fl (80.0-96.0); MONO # 0.7 10^3/uL (0.0-0.8); MONO % 8.3 % (0.0-5.0); NEUTROPHILS # 5.2 10^3/uL (1.8-7.7); NEUTROPHILS % 64.9 % (36.0-66.0); PLATELET COUNT, AUTOMATED 324 10^3/uL (150-450); RED BLOOD COUNT 4.13 10^6/uL (4.00-5.40); RED CELL DISTRIBUTION WIDTH 12.9 % (11.5-14.5); WHITE BLOOD COUNT 8.1 10^3/uL (4.0-10.0)
[2017-11-07 15:50] LABS: ANION GAP 11 MEQ/L (8-16); BLOOD UREA NITROGEN 9 MG/DL (7-18); CALCIUM LEVEL 8.8 MG/DL (8.5-10.1); CARBON DIOXIDE LEVEL 25 MEQ/L (21-32); CHLORIDE LEVEL 105 MEQ/L (98-107); CREATININE FOR GFR 0.85 MG/DL (0.55-1.02); GLOMERULAR FILTRATION RATE > 60.0 (>60); GLUCOSE, FASTING 190 MG/DL (70-105); POTASSIUM SERUM 4.2 MEQ/L (3.5-5.1); SODIUM LEVEL 141 MEQ/L (136-145)
[2017-11-07] MEDS: CLINDAMYCIN 150 MG CAP PO (16:30)
== END 2017-11-07 17:20 | disposition home or self-care (01) ==
LOC: M ED 13:33
DX: L02.11 Cutaneous abscess of neck (principal); Z87.820 Personal history of traumatic brain injury; E10.9 Type 1 diabetes mellitus without complications; Z93.0 Tracheostomy status; G43.909 Migraine, unspecified, not intractable, without status migrainosus; Z86.74 Personal history of sudden cardiac arrest; Z87.01 Personal history of pneumonia (recurrent); Z86.711 Personal history of pulmonary embolism; K21.9 Gastro-esophageal reflux disease without esophagitis; Z87.440 Personal history of urinary (tract) infections; E28.2 Polycystic ovarian syndrome; M54.9 Dorsalgia, unspecified; D68.59 Other primary thrombophilia; F41.9 Anxiety disorder, unspecified; F32.9 Major depressive disorder, single episode, unspecified; F43.10 Post-traumatic stress disorder, unspecified; Z86.14 Personal history of Methicillin resistant Staphylococcus aureus infection; Z86.19 Personal history of other infectious and parasitic diseases; Z79.4 Long term (current) use of insulin; Z79.899 Other long term (current) drug therapy; Z88.1 Allergy status to other antibiotic agents; Z88.8 Allergy status to other drugs, medicaments and biological substances; Z91.89 Other specified personal risk factors, not elsewhere classified
CPT/HCPCS: J2060

== ENCOUNTER → 2017-11-20 | Outpatient (REF) | payer MEDICAID | LOC: M LAB REF 14:34 | DX: R19.7 Diarrhea, unspecified (principal) ==

== ENCOUNTER → 2018-04-01 | Outpatient (REF) | payer MEDICAID ==
[2018-04-01 17:53] LABS: ESTIMATED AVERAGE GLUCOSE 235 MG/DL (60-110); HEMOGLOBIN A1c 9.8 %
== END ==
LOC: M SFHCPLAZ 14:56
DX: E11.9 Type 2 diabetes mellitus without complications (principal); Z79.4 Long term (current) use of insulin

== ENCOUNTER 2018-05-12 22:16 | Emergency (ER) | payer MEDICARE, MEDICAID ==
[2018-05-13] MEDS: CLINDAMYCIN 150 MG CAP PO (00:16)
== END 2018-05-13 00:33 | disposition home or self-care (01) ==
LOC: M ED 05-13 00:33
DX: L02.11 Cutaneous abscess of neck (principal); L03.221 Cellulitis of neck; Z79.4 Long term (current) use of insulin; Z79.899 Other long term (current) drug therapy; Z88.1 Allergy status to other antibiotic agents; Z88.8 Allergy status to other drugs, medicaments and biological substances; Z91.89 Other specified personal risk factors, not elsewhere classified
CPT/HCPCS: 99283

== ENCOUNTER 2018-08-13 11:42 | Emergency (ER) | payer MEDICARE, MEDICAID | END 2018-08-13 13:19 | disposition home or self-care (01) | LOC: M ED 11:42 | DX: J95.09 Other tracheostomy complication (principal); E10.9 Type 1 diabetes mellitus without complications; Z87.440 Personal history of urinary (tract) infections; Z86.711 Personal history of pulmonary embolism; Z79.4 Long term (current) use of insulin; Z79.899 Other long term (current) drug therapy; Z88.1 Allergy status to other antibiotic agents; Z88.8 Allergy status to other drugs, medicaments and biological substances; Z91.89 Other specified personal risk factors, not elsewhere classified | CPT/HCPCS: 31615 ==

== ENCOUNTER 2019-02-19 12:05 | Inpatient (IN) | payer MEDICARE, MEDICAID ==
[~2019-02-19 12:05] MED LIST changes: -/BACL20TA PO; -/CELE20CA OR; -/DIVA50TA PO; -/ESCI10TA PO; -/ESOM40CA OR; -/HALO1T OR; -/IPRA3SP INH; -/IPRAINH INH; -/LINE60TA; -/LORA10TA PO; -/MIRT30TA OR; -/MOM400 PO; -/ONDA4TA; -/ROPI1TA PO; -/ROPI25TA PO; -/SUCR1TA; -/SUCR1TA OR; -/WARF5TA; -/WARF5TA OR; -ACET50TA PO; +ATIV1TAB7 PO; +ATRO0.063 INH; +ATRO1SOL13 INH; +BACL1TAB9 PO; -CEFD300CAP PO; +CELE1CAP4 OR; +CITA10TA5 PO; +CLEO300C2 PO; -CLON0.5T PO; +CLON0.5T8 PO; +COUM1TAB17; +COUM1TAB17 OR; +DEPA1TAB3 PO; -DIVA250T PO; +DIVA250T67 PO; -DIVA500T3 PO; +DIVA500T9; +DIVA500T94 PO; -DOCQ100C PO; +DOCQ100C5 PO; -ENOX40SY; -ENOX40SY SC; +FLUO20CA19; +GLUC1VIA2 SC; -GLUC1VL SC; +HALO1TAB20 OR; +IPRA0.00 NEB; -IPRASOL4 NEB; +KLON1TAB PO; +LAMO100T80 PO; -LAMO10TA PO; -LAMO25TA2 PO; +LAMO25TA4 PO; +LEVA1.2525 INH; -LEVA1.256 INH; +LEXA1TAB PO; +LORA-243 PO; +LORA-385 PO; -LORA10TA2 PO; +LOVE1INJ; +LOVE1INJ SC; +MAPA500T17 PO; +MILK10SU PO; +MIRT1TAB21 OR; +NEXI1CAP3 OR; +NORC1TAB7 PO; +NYST100029 TOP; -NYST10CR TOP; +OLAN15TA; +OLAN5TAB24 PO; -OLAN5ZYD PO; +ONDA-1; +ONDA-227 OR; +OXYC-517 PO; -OXYCO5TA PO; +PROZ40CA PO; +REQU0.5T PO; +REQU1TAB14 PO; +REQU1TAB16 PO; -ROPI0.25 PO; +ROPI0.253 PO; +SUCR1TAB56; +SUCR1TAB56 OR; +TIZA4CAP PO; -TIZA4CAP3 PO; +TRAZ1TAB36 PO; -TRAZO50TA PO; -ZOFR20TA PO; +ZOFR4TAB14 PO; +ZOFR4TAB16 PO; -ZOFR4TAB3 PO; -ZOFR8TAB OR; +ZYVO100T
--- NOTE | 2019-02-19 12:44 | REP ---
Chest one-view HISTORY: Cough Comparison: 08/13/2018 Patchy density is present in the right upper lobe consistent with an infiltrate. The left lung is clear. The heart is normal in size. The pulmonary vasculature is normal in appearance. A tracheostomy is present. Impression: Right upper lobe infiltrate. Electronically Signed by Ken Cruz MD 02/19/2019 12:35 P
[2019-02-19] MEDS ORDERED: NUED20CA PO (12:53)
[2019-02-19] MEDS ORDERED: LAMO100T PO (12:53)
[2019-02-19 13:09] LABS: BASO # 0.1 10^3/uL (0.0-0.2); BASO % 0.5 % (0.0-1.0); EOS % 0.2 % (0.0-3.0); HEMATOCRIT 36.4 % (36.0-47.0); HEMOGLOBIN 11.7 g/dl (12.0-15.5); LYMPH # 1.2 10^3/uL (1.5-4.5); LYMPH % 9.4 % (24.0-44.0); MEAN CORPUSCULAR HEMOGLOBIN 28.8 pg (27.0-33.0); MEAN CORPUSCULAR HGB CONC 32.1 g/dl (32.0-36.5); MEAN CORPUSCULAR VOLUME 89.7 fl (80.0-96.0); MONO # 1.2 10^3/uL (0.0-0.8); MONO % 9.2 % (0.0-5.0); NEUTROPHILS # 10.3 10^3/uL (1.8-7.7); NEUTROPHILS % 80.2 % (36.0-66.0); PLATELET COUNT, AUTOMATED 392 10^3/uL (150-450); RED BLOOD COUNT 4.06 10^6/uL (4.00-5.40); WHITE BLOOD COUNT 12.8 10^3/uL (4.0-10.0)
[2019-02-19] MEDS ORDERED: ONDANSETRON 4MG/2ML VIAL (J2405) IV ONE (13:15)
[2019-02-19] MEDS ORDERED: PROMETHAZINE INJ 25 MG/ML VIAL (J2550) IV ONE (13:30)
[2019-02-19] MEDS ORDERED: cefTRIAXone SOD 1 GM in D5W MINI-BAG PLUS 50 ML IV ONE (13:30)
[2019-02-19] MEDS ORDERED: LORazepam 2 MG/ML VIAL (J2060) IV STA (13:37)
[2019-02-19 13:38] LABS: ALBUMIN 3.2 GM/DL (3.2-5.2); ALT/SGPT 21 U/L (12-78); BILIRUBIN,DIRECT < 0.1 MG/DL (0.0-0.2); BILIRUBIN,TOTAL 0.3 MG/DL (0.2-1.0); BLOOD UREA NITROGEN 10 MG/DL (7-18); CALCIUM LEVEL 8.5 MG/DL (8.5-10.1); CARBON DIOXIDE LEVEL 24 MEQ/L (21-32); CHLORIDE LEVEL 102 MEQ/L (98-107); CREATININE FOR GFR 0.84 MG/DL (0.55-1.30); GLOMERULAR FILTRATION RATE > 60.0 (>60); GLUCOSE, FASTING 232 MG/DL (70-100); NT-PRO BNP 203 PG/ML (<125); SODIUM LEVEL 137 MEQ/L (136-145); TOTAL PROTEIN 7.5 GM/DL (6.4-8.2)
[2019-02-19 14:01] LABS: ABG BASE EXCESS -6.5 (-2.0-2.0); ABG HCO3 18.5 MEQ/L (22.0-26.0); ABG O2 SATURATION 93.4 % (95.0-99.0); ABG PARTIAL PRESSURE O2 74.4 mmHg (75.0-100.0); ABG STANDARD HCO3 19.1 MEQ/L (22.0-26.0); ABG TOTAL CO2 19.5 MEQ/L (22.0-29.0)
[2019-02-19] MEDS ORDERED: OLAN10TA2 PO (14:29)
[2019-02-19] MEDS ORDERED: MUCI600T31 PO (14:29)
[2019-02-19] MEDS ORDERED: FLUO20CA19 PO (14:29)
[2019-02-19] MEDS ORDERED: OLAN15TA PO (14:29)
[2019-02-19] MEDS ORDERED: DIVA250T7 PO (14:29)
[2019-02-19] MEDS ORDERED: CLON0.5T8 PO ×2 (14:29)
[2019-02-19] MEDS ORDERED: ROPI1TAB PO (14:29)
[2019-02-19] MEDS ORDERED: BASA100I SC (14:29)
[2019-02-19 14:37] LABS: INFLUENZA A AMPLIFICATION NEGATIVE (NEGATIVE); INFLUENZA B AMPLIFICATION NEGATIVE (NEGATIVE)
[2019-02-19] MEDS ORDERED: GLUCOSE 4 GM CHEW TABLET PO PRN (15:45)
[2019-02-19] MEDS ORDERED: LEVALBUTEROL 1.25 MG/0.5 ML CONCENTRATE NEB INH PRN (15:45)
[2019-02-19] MEDS ORDERED: GLUCAGON FOR INJ 1 MG VIAL (J1610) SC PRN (15:45)
[2019-02-19] MEDS ORDERED: DOCUSATE SODIUM 100 MG CAP PO PRN (15:45)
[2019-02-19] MEDS ORDERED: DEXTROSE 50% 50 ML SYRINGE IV PRN (15:45)
[2019-02-19] MEDS ORDERED: guaiFENesin ER 600 MG TAB PO PRN (15:45)
[2019-02-19] MEDS ORDERED: ONDANSETRON 4 MG TAB (S0181) PO PRN (15:45)
--- NOTE | 2019-02-19 16:47 | ECGEPIP ---
Stationary ECG Study [facility] - ED Test Date: 2019-02-19 Pat Name: ROSEMARIE ANGUIANO Department: Room: - Gender: F [employer] Architect: LAZARO : 1985 Requested By: Zayda Calle Order Number: [id number] Reading MD: Zayda Calle Measurements Intervals [place] Rate: 150 P: 50 [place]: 139 QRS: 28 QRSD: 82 T: 58 QT: 325 QTc: 514 Interpretive Statements SINUS TACHYCARDIA, POSSIBLE ATRIAL FLUTTER, BASELINE ARTIFACT LIMITS I INTERPRETATION DELAYED R PROGRESSION LOW QRS VOLTAGE IN PRECORDIAL LEADS NONSPECIFIC T-WAVE ABNORMALITY ABNORMAL RHYTHM ECG Electronically Signed On 02-19-2019 16:47:05 EDT by Zayda Calle
[2019-02-19] MEDS: tiZANidine 4 MG TAB PO SCH ×2 (16:58→20:23)
[2019-02-19] MEDS: clonazePAM 0.5 MG TAB PO SCH ×2 (16:58→20:24)
[2019-02-19] MEDS: IPRATROPIUM 0.5MG/ALBUTEROL 2.5MG INH SOL UD 3ML (DUONEB)(J7620) NEB SCH ×2 (17:02→20:43)
[2019-02-19] MEDS: HumaLOG INSULIN (NovoLOG) PER UNIT SC SCH ×2 (17:30→21:00)
[2019-02-19 17:55] VITALS: BP 114/78
[2019-02-19] MEDS: lamoTRIgine 100MG TAB PO SCH (20:23)
[2019-02-19] MEDS: diphenhydrAMINE 25 MG CAP PO SCH (20:23)
[2019-02-19] MEDS: DIVALPROEX 250MG *ER* TAB PO SCH (20:23)
[2019-02-19] MEDS: rOPINIRole 1MG TAB PO SCH (20:23)
[2019-02-19] MEDS: RIVAROXABAN 20 MG TAB (XARELTO) PO SCH (20:23)
[2019-02-19] MEDS: OLANZapine 5 MG TAB PO SCH (20:24)
[2019-02-19 20:44] VITALS: O2SAT 98
[2019-02-19] MEDS ORDERED: NUEDEXTA PO SCH (21:00)
[2019-02-19 22:20] VITALS: BP 105/68
[2019-02-20] MEDS: NORCO, ANEXSIA 5/325MG TABLET (HYDROcodone/ACETAMINOPHEN) PO PRN ×2 (05:34→15:11)
[2019-02-20 06:00] VITALS: BP 115/73
[2019-02-20 06:05] LABS: BASO # 0.1 10^3/uL (0.0-0.2); BASO % 0.6 % (0.0-1.0); EOS # 0.1 10^3/uL (0.0-0.50); EOS % 0.5 % (0.0-3.0); HEMATOCRIT 33.7 % (36.0-47.0); HEMOGLOBIN 10.8 g/dl (12.0-15.5); LYMPH # 2.3 10^3/uL (1.5-4.5); LYMPH % 21.4 % (24.0-44.0); MEAN CORPUSCULAR HEMOGLOBIN 28.3 pg (27.0-33.0); MEAN CORPUSCULAR VOLUME 88.5 fl (80.0-96.0); MONO # 1.1 10^3/uL (0.0-0.8); MONO % 10.5 % (0.0-5.0); NEUTROPHILS # 7.3 10^3/uL (1.8-7.7); NEUTROPHILS % 66.6 % (36.0-66.0); PLATELET COUNT, AUTOMATED 388 10^3/uL (150-450); RED BLOOD COUNT 3.81 10^6/uL (4.00-5.40); WHITE BLOOD COUNT 10.9 10^3/uL (4.0-10.0)
[2019-02-20 06:29] LABS: ALBUMIN 3.1 GM/DL (3.2-5.2); ALT/SGPT 15 U/L (12-78); BILIRUBIN,TOTAL 0.4 MG/DL (0.2-1.0); BLOOD UREA NITROGEN 11 MG/DL (7-18); CALCIUM LEVEL 8.4 MG/DL (8.5-10.1); CARBON DIOXIDE LEVEL 27 MEQ/L (21-32); CHLORIDE LEVEL 102 MEQ/L (98-107); CREATININE FOR GFR 0.71 MG/DL (0.55-1.30); GLOMERULAR FILTRATION RATE > 60.0 (>60); GLUCOSE, FASTING 175 MG/DL (70-100); POTASSIUM SERUM 3.4 MEQ/L (3.5-5.1); SODIUM LEVEL 137 MEQ/L (136-145); TOTAL PROTEIN 7.1 GM/DL (6.4-8.2)
[2019-02-20] MEDS: IPRATROPIUM 0.5MG/ALBUTEROL 2.5MG INH SOL UD 3ML (DUONEB)(J7620) NEB SCH ×3 (07:20→21:27)
[2019-02-20] MEDS: HumaLOG INSULIN (NovoLOG) PER UNIT SC SCH ×4 (07:30→21:22)
[2019-02-20] MEDS: OLANZapine 10 MG TAB PO SCH (09:19)
[2019-02-20] MEDS: lamoTRIgine 100MG TAB PO SCH ×2 (09:19→21:21)
[2019-02-20] MEDS: diphenhydrAMINE 25 MG CAP PO SCH ×2 (09:19→21:21)
[2019-02-20] MEDS: clonazePAM 0.5 MG TAB PO SCH ×3 (09:19→21:19)
[2019-02-20] MEDS: FLUoxetine 20 MG CAP PO SCH (09:20)
[2019-02-20] MEDS: CitaloPRAM (CeleXA) 10 MG TABLET PO SCH (09:20)
[2019-02-20] MEDS: DIVALPROEX 250MG *ER* TAB PO SCH ×3 (09:20→21:21)
[2019-02-20] MEDS: tiZANidine 4 MG TAB PO SCH ×3 (09:20→21:19)
[2019-02-20] MEDS: OMEPRAZOLE 20 MG CAP PO SCH (09:20)
--- NOTE | 2019-02-20 11:05 | IPNPDOC ---
Subjective Date Seen The patient was seen on 02/20/19. Subjective Chief Complaint/HPI Pt this morning without new concerns. Nursing without concerns. Sitter at bedside. General: Reports: ROS Unobtainable (pt asleep) Objective Physical Examination General Exam: Positive: No Acute Distress ENT Exam: Positive: Mucous membr. moist/pink Neck Exam: Positive: Supple, Other (+ trach with collar) Chest Exam: Positive: Diminished; Negative: Rales, Rhonchi, Wheezing Heart Exam: Positive: Rate Normal, Normal S1, Normal S2 Abdomen Exam: Positive: Normal bowel sounds Extremity Exam: Negative: Edema A-FIB/CHADSVASC A-FIB History Current/History of A-Fib/PAF?: No Assessment /Plan Assessment 02/20: Patient nonverbal, indicated R sided discomfort, otherwise did not respond to queries. Oxygenating well. Nursing without concerns, sitter at bedside. -- CDT Problems (1) Right upper lobe pneumonia Status: Acute Response to Treatment: Stable Discussed With: Nurse Problem Specific Plan: Monitor Clinically, Repeat Labs Problem Text: On azithro/ rocephin D2, Sats stable. WBC down slightly. Afebrile. (2) Tracheostomy present Status: Chronic (3) GERD (gastroesophageal reflux disease) Status: Chronic Plan/VTE VTE Prophylaxis Ordered?: Yes VS, I&O, 24H, [facility] Vital Signs/I&O Vital Signs Date Time Temp Pulse Resp B/P (MAP) Pulse Ox O2 Delivery O2 Flow Rate FiO2 02/20/19 06:04 21 02/20/19 06:00 98.5 100 115/73 (87) 96 02/19/19 20:44 Trach Collar 5.0 28 I&O- Last 24 Hours up to 6 AM 02/20/19 05:59 Intake Total 110 ml Output Total 0 ml Balance 110 ml Laboratory Data 24H LABS Laboratory Tests 2 02/19/19 12:13: Immature Granulocyte % (Auto) 0.5, White Blood Count 12.8H, Red Blood Count 4.06, Hemoglobin 11.7L, Hematocrit 36.4, Mean Corpuscular Volume 89.7, Mean Corpuscular Hemoglobin 28.8, Mean Corpuscular Hemoglobin Concent 32.1, Red Cell Distribution Width 13.3, Platelet Count 392, Neutrophils (%) (Auto) 80.2H, Lymphocytes (%) (Auto) 9.4L, Monocytes (%) (Auto) 9.2H, Eosinophils (%) (Auto) 0.2, Basophils (%) (Auto) 0.5, Neutrophils # (Auto) 10.3H, Lymphocytes # (Auto) 1.2L, Monocytes # (Auto) 1.2H, Eosinophils # (Auto) 0.0, Basophils # (Auto) 0.1, Nucleated Red Blood Cells % (auto) 0.0 02/19/19 12:48: Anion Gap 11, Glomerular Filtration Rate > 60.0, Calcium Level 8.5, Aspartate Amino Transf (AST/SGOT) 12, Alanine Aminotransferase (ALT/SGPT) 21, Alkaline Phosphatase 50, Total Bilirubin 0.3, Direct Bilirubin < 0.1, UG-Mov-N-Type Natriuretic Peptide 203H, Total Protein 7.5, Albumin 3.2, Albumin/Globulin Ratio 0.74L, Thyroid Stimulating Hormone (TSH) 1.040 02/19/19 13:56: Blood Gas Bicarbonate Standard 19.1L, Arterial Blood pH 7.340L, Arterial Blood Partial Pressure CO2 35.0, Arterial Blood Partial Pressure O2 74.4L, Arterial Blood Total CO2 19.5L, Arterial Blood HCO3 18.5L, Arterial Blood Base Excess - 6.5L, Arterial Blood Oxygen Saturation 93.4L, Influenza Type A (RT-PCR) NEGATIVE, Influenza Type B (RT-PCR) NEGATIVE 02/19/19 18:34: Bedside Glucose (Misc Panel) 222H 02/19/19 19:56: Bedside Glucose (Misc Panel) 291H 02/19/19 21:48: Bedside Glucose (Misc Panel) 218H 02/20/19 05:27: Immature Granulocyte % (Auto) 0.4, White Blood Count 10.9H, Red Blood Count 3.81L, Hemoglobin 10.8L, Hematocrit 33.7L, Mean Corpuscular Volume 88.5, Mean Corpuscular Hemoglobin 28.3, Mean Corpuscular Hemoglobin Concent 32.0, Red Cell Distribution Width 13.7, Platelet Count 388, Neutrophils (%) (Auto) 66.6H, Lymphocytes (%) (Auto) 21.4L, Monocytes (%) (Auto) 10.5H, Eosinophils (%) (Auto) 0.5, Basophils (%) (Auto) 0.6, Neutrophils # (Auto) 7.3, Lymphocytes # (Auto) 2.3, Monocytes # (Auto) 1.1H, Eosinophils # (Auto) 0.1, Basophils # (Auto) 0.1, Nucleated Red Blood Cells % (auto) 0.0, Anion Gap 8, Glomerular Filtration Rate > 60.0, Blood Urea Nitrogen 11, Creatinine 0.71, Sodium Level 137, Potassium Level 3.4L, Chloride Level 102, Carbon Dioxide Level 27, Calcium Level 8.4L, Aspartate Amino Transf (AST/SGOT) 7, Alanine Aminotransferase (ALT/SGPT) 15, Alkaline Phosphatase 44L, Total Bilirubin 0.4, Total Protein 7.1, Albumin 3.1L, C-Reactive Protein, Quantitative 14.90H, Albumin/Globulin Ratio 0.78L 02/20/19 05:52: Bedside Glucose (Misc Panel) 190H CBC/BMP Laboratory Tests 02/19/19 12:13 Red Blood Count 4.06, Mean Corpuscular Volume 89.7, Mean Corpuscular Hemoglobin 28.8, Mean Corpuscular Hemoglobin Concent 32.1, Red Cell Distribution Width 13.3, Neutrophils (%) (Auto) 80.2 H, Lymphocytes (%) (Auto) 9.4 L, Monocytes (%) (Auto) 9.2 H, Eosinophils (%) (Auto) 0.2, Basophils (%) (Auto) 0.5, Neutrophils # (Auto) 10.3 H, Lymphocytes # (Auto) 1.2 L, Monocytes # (Auto) 1.2 H, Eosinophils # (Auto) 0.0, Basophils # (Auto) 0.1 02/19/19 12:48 02/20/19 05:27 Red Blood Count 3.81 L, Mean Corpuscular Volume 88.5, Mean Corpuscular Hemoglobin 28.3, Mean Corpuscular Hemoglobin Concent 32.0, Red Cell Distribution Width 13.7, Neutrophils (%) (Auto) 66.6 H, Lymphocytes (%) (Auto) 21.4 L, Monocytes (%) (Auto) 10.5 H, Eosinophils (%) (Auto) 0.5, Basophils (%) (Auto) 0.6, Neutrophils # (Auto) 7.3, Lymphocytes # (Auto) 2.3, Monocytes # (Auto) 1.1 H, Eosinophils # (Auto) 0.1, Basophils # (Auto) 0.1, Calcium Level 8.4 L, Aspartate Amino Transf (AST/SGOT) 7, Alanine Aminotransferase (ALT/SGPT) 15, Alkaline Phosphatase 44 L, Total Bilirubin 0.4, Total Protein 7.1, Albumin 3.1 L Microbiology Microbiology 02/19/19 Blood Culture, Received Pending 02/19/19 Blood Culture, Received Pending THANH BLACKWELL PA-C Feb 20, 2019 11:05 IRA WONG DO Feb 20, 2019 23:12
[2019-02-20 14:00] VITALS: BP 117/69
[2019-02-20] MEDS: cefTRIAXone SOD 1 GM in D5W MINI-BAG PLUS 50 ML IV SCH (14:39)
[2019-02-20] MEDS: OLANZapine 5 MG TAB PO SCH (21:21)
[2019-02-20] MEDS: RIVAROXABAN 20 MG TAB (XARELTO) PO SCH (21:21)
[2019-02-20] MEDS: rOPINIRole 1MG TAB PO SCH (21:21)
[2019-02-20 22:00] VITALS: BP 115/78
[2019-02-21] MEDS: NORCO, ANEXSIA 5/325MG TABLET (HYDROcodone/ACETAMINOPHEN) PO PRN ×2 (05:34→16:42)
[2019-02-21 05:54] LABS: BASO # 0.1 10^3/uL (0.0-0.2); BASO % 0.7 % (0.0-1.0); EOS # 0.1 10^3/uL (0.0-0.50); EOS % 1.7 % (0.0-3.0); HEMATOCRIT 35.1 % (36.0-47.0); HEMOGLOBIN 11.2 g/dl (12.0-15.5); LYMPH # 2.6 10^3/uL (1.5-4.5); LYMPH % 37.5 % (24.0-44.0); MEAN CORPUSCULAR HEMOGLOBIN 29.1 pg (27.0-33.0); MEAN CORPUSCULAR HGB CONC 31.9 g/dl (32.0-36.5); MEAN CORPUSCULAR VOLUME 91.2 fl (80.0-96.0); MONO # 0.7 10^3/uL (0.0-0.8); MONO % 9.8 % (0.0-5.0); NEUTROPHILS # 3.5 10^3/uL (1.8-7.7); NEUTROPHILS % 49.4 % (36.0-66.0); PLATELET COUNT, AUTOMATED 375 10^3/uL (150-450); RED BLOOD COUNT 3.85 10^6/uL (4.00-5.40)
[2019-02-21 06:00] VITALS: BP 139/76
[2019-02-21 06:32] LABS: ALBUMIN 2.9 GM/DL (3.2-5.2); ALT/SGPT 24 U/L (12-78); BILIRUBIN,TOTAL 0.2 MG/DL (0.2-1.0); BLOOD UREA NITROGEN 14 MG/DL (7-18); CALCIUM LEVEL 8.7 MG/DL (8.5-10.1); CARBON DIOXIDE LEVEL 29 MEQ/L (21-32); CHLORIDE LEVEL 101 MEQ/L (98-107); CREATININE FOR GFR 0.74 MG/DL (0.55-1.30); GLOMERULAR FILTRATION RATE > 60.0 (>60); GLUCOSE, FASTING 206 MG/DL (70-100); POTASSIUM SERUM 4.2 MEQ/L (3.5-5.1); SODIUM LEVEL 138 MEQ/L (136-145); TOTAL PROTEIN 7.1 GM/DL (6.4-8.2)
[2019-02-21] MEDS: IPRATROPIUM 0.5MG/ALBUTEROL 2.5MG INH SOL UD 3ML (DUONEB)(J7620) NEB SCH ×4 (07:15→19:45)
[2019-02-21] MEDS: HumaLOG INSULIN (NovoLOG) PER UNIT SC SCH ×4 (07:30→20:23)
--- NOTE | 2019-02-21 08:26 | IPNPDOC ---
Subjective Date Seen The patient was seen on 02/21/19. Subjective Chief Complaint/HPI Patient is non-verbal. Sitter at bedside feeding patient breakfast as I entered the room. Patient was in NAD General: Reports: ROS Unobtainable Objective Physical Examination General Exam: Positive: No Acute Distress ENT Exam: Positive: Mucous membr. moist/pink Neck Exam: Positive: Supple, Other (+ trach with collar) Chest Exam: Positive: Diminished; Negative: Rales, Rhonchi, Wheezing Heart Exam: Positive: Rate Normal, Normal S1, Normal S2 Abdomen Exam: Positive: Normal bowel sounds Extremity Exam: Negative: Edema A-FIB/CHADSVASC A-FIB History Current/History of A-Fib/PAF?: No Current Oral Anticoagulant The: Yes (Hx of PE) Assessment /Plan Assessment 02/21: WBCs downtrending, patient appeared pleasant and comfortable, more interactive. Clinically improving. -- CDT Problems (1) Right upper lobe pneumonia Status: Acute Response to Treatment: Stable Discussed With: Nurse Problem Specific Plan: Monitor Clinically, Repeat Labs Problem Text: 02/21/19: Patient a-febrile. BC negative x 24 hours. She is currently on Ceftriaxone 1 gm D2. WBC 7.0 On azithro/ rocephin D2, Sats stable. WBC down slightly. Afebrile. (2) DM2 (diabetes mellitus, type 2) Status: Chronic Response to Treatment: Stable Problem Text: 02/21/19: SSI per protocol. BG 206 (3) Tracheostomy present Status: Chronic (4) GERD (gastroesophageal reflux disease) Status: Chronic Plan/VTE VTE Prophylaxis Ordered?: Yes (Xarelto ) VS[facility] Vital Signs/I&O Vital Signs Date Time Temp Pulse Resp B/P (MAP) Pulse Ox O2 Delivery O2 Flow Rate FiO2 02/21/19 06:14 20 02/21/19 06:00 98.0 84 139/76 (97) 93 02/20/19 22:00 15.0 02/19/19 20:44 Trach Collar 28 I&O- Last 24 Hours up to 6 AM 02/21/19 06:00 Intake Total 1140 ml Output Total 0 ml Balance 1140 ml Laboratory Data 24H LABS Laboratory Tests 2 02/20/19 11:46: Bedside Glucose (Misc Panel) 205H 02/20/19 16:32: Bedside Glucose (Misc Panel) 143H 02/20/19 20:37: Bedside Glucose (Misc Panel) 253H 02/21/19 05:32: Immature Granulocyte % (Auto) 0.9, White Blood Count 7.0, Red Blood Count 3.85L, Hemoglobin 11.2L, Hematocrit 35.1L, Mean Corpuscular Volume 91.2, Mean Corpuscular Hemoglobin 29.1, Mean Corpuscular Hemoglobin Concent 31.9L, Red Cell Distribution Width 13.7, Platelet Count 375, Neutrophils (%) (Auto) 49.4, Lymphocytes (%) (Auto) 37.5, Monocytes (%) (Auto) 9.8H, Eosinophils (%) (Auto) 1.7, Basophils (%) (Auto) 0.7, Neutrophils # (Auto) 3.5, Lymphocytes # (Auto) 2.6, Monocytes # (Auto) 0.7, Eosinophils # (Auto) 0.1, Basophils # (Auto) 0.1, Nucleated Red Blood Cells % (auto) 0.0, Anion Gap 8, Glomerular Filtration Rate > 60.0, Blood Urea Nitrogen 14, Creatinine 0.74, Sodium Level 138, Potassium Lev el 4.2#, Chloride Level 101, Carbon Dioxide Level 29, Calcium Level 8.7, Aspartate Amino Transf (AST/SGOT) 25, Alanine Aminotransferase (ALT/SGPT) 24, Alkaline Phosphatase 45, Total Bilirubin 0.2, Total Protein 7.1, Albumin 2.9L, C-Reactive Protein, Quantitative 13.20H, Albumin/Globulin Ratio 0.69L CBC/BMP Laboratory Tests 02/21/19 05:32 Red Blood Count 3.85 L, Mean Corpuscular Volume 91.2, Mean Corpuscular Hemoglobin 29.1, Mean Corpuscular Hemoglobin Concent 31.9 L, Red Cell Distribution Width 13.7, Neutrophils (%) (Auto) 49.4, Lymphocytes (%) (Auto) 37.5, Monocytes (%) (Auto) 9.8 H, Eosinophils (%) (Auto) 1.7, Basophils (%) (Auto) 0.7, Neutrophils # (Auto) 3.5, Lymphocytes # (Auto) 2.6, Monocytes # (Auto) 0.7, Eosinophils # (Auto) 0.1, Basophils # (Auto) 0.1, Calcium Level 8.7, Aspartate Amino Transf (AST/SGOT) 25, Alanine Aminotransferase (ALT/SGPT) 24, Alkaline Phosphatase 45, Total Bilirubin 0.2, Total Protein 7.1, Albumin 2.9 L Microbiology Microbiology 02/19/19 Blood Culture - Preliminary, Resulted No growth after 24 hours . All specim... 02/19/19 Blood Culture - Preliminary, Resulted No growth after 24 hours . All specim... ZOFIA HAIR [facility] Feb 21, 2019 08:15 IRA WONG DO February 23, 2019 01:19
[2019-02-21] MEDS: diphenhydrAMINE 25 MG CAP PO SCH ×2 (09:39→20:41)
[2019-02-21] MEDS: OMEPRAZOLE 20 MG CAP PO SCH (09:39)
[2019-02-21] MEDS: clonazePAM 0.5 MG TAB PO SCH ×3 (09:40→20:43)
[2019-02-21] MEDS: DIVALPROEX 250MG *ER* TAB PO SCH ×3 (09:40→20:41)
[2019-02-21] MEDS: FLUoxetine 20 MG CAP PO SCH (09:40)
[2019-02-21] MEDS: tiZANidine 4 MG TAB PO SCH ×3 (09:40→20:42)
[2019-02-21] MEDS: CitaloPRAM (CeleXA) 10 MG TABLET PO SCH (09:41)
[2019-02-21] MEDS: OLANZapine 10 MG TAB PO SCH (09:41)
[2019-02-21] MEDS: lamoTRIgine 100MG TAB PO SCH ×2 (09:41→20:43)
[2019-02-21] MEDS: cefTRIAXone SOD 1 GM in D5W MINI-BAG PLUS 50 ML IV SCH (13:22)
[2019-02-21 14:00] VITALS: BP 138/90
[2019-02-21] MEDS: RIVAROXABAN 20 MG TAB (XARELTO) PO SCH (20:41)
[2019-02-21] MEDS: OLANZapine 5 MG TAB PO SCH (20:42)
[2019-02-21] MEDS: ACETAMINOPHEN TAB 650MG DOSE (2X325MG) PO PRN (20:42)
[2019-02-21] MEDS: rOPINIRole 1MG TAB PO SCH (20:43)
[2019-02-21 22:00] VITALS: BP 122/75
[2019-02-22] MEDS: NORCO, ANEXSIA 5/325MG TABLET (HYDROcodone/ACETAMINOPHEN) PO PRN ×3 (03:29→21:41)
[2019-02-22 06:00] VITALS: BP 133/81
[2019-02-22 07:28] LABS: EOS % 1.9 % (0.0-3.0); HEMATOCRIT 35.4 % (36.0-47.0); HEMOGLOBIN 11.2 g/dl (12.0-15.5); MEAN CORPUSCULAR HEMOGLOBIN 28.7 pg (27.0-33.0); MEAN CORPUSCULAR HGB CONC 31.6 g/dl (32.0-36.5); MEAN CORPUSCULAR VOLUME 90.8 fl (80.0-96.0); MONO % 7.5 % (0.0-5.0); NEUTROPHILS % 48.1 % (36.0-66.0); PLATELET COUNT, AUTOMATED 380 10^3/uL (150-450); WHITE BLOOD COUNT 6.2 10^3/uL (4.0-10.0)
[2019-02-22 07:29] LABS: BASO # 0.1 10^3/uL (0.0-0.2); EOS # 0.1 10^3/uL (0.0-0.50); LYMPH # 2.6 10^3/uL (1.5-4.5); MONO # 0.5 10^3/uL (0.0-0.8)
[2019-02-22] MEDS: IPRATROPIUM 0.5MG/ALBUTEROL 2.5MG INH SOL UD 3ML (DUONEB)(J7620) NEB SCH ×4 (08:54→19:39)
[2019-02-22] MEDS: tiZANidine 4 MG TAB PO SCH ×3 (09:00→21:08)
[2019-02-22] MEDS ORDERED: PILL CRUSHER/CUTTER 1 EACH XX PRN (09:15)
[2019-02-22] MEDS: clonazePAM 0.5 MG TAB PO SCH ×3 (09:19→21:08)
[2019-02-22] MEDS: HumaLOG INSULIN (NovoLOG) PER UNIT SC SCH ×4 (09:19→21:09)
[2019-02-22] MEDS: OLANZapine 10 MG TAB PO SCH (09:19)
[2019-02-22] MEDS: CitaloPRAM (CeleXA) 10 MG TABLET PO SCH (09:20)
[2019-02-22] MEDS: lamoTRIgine 100MG TAB PO SCH ×2 (09:20→21:08)
[2019-02-22] MEDS: OMEPRAZOLE 20 MG CAP PO SCH (09:20)
[2019-02-22] MEDS: diphenhydrAMINE 25 MG CAP PO SCH ×2 (09:20→21:08)
[2019-02-22] MEDS: DIVALPROEX 250MG *ER* TAB PO SCH ×3 (09:20→21:09)
[2019-02-22] MEDS: FLUoxetine 20 MG CAP PO SCH (09:20)
[2019-02-22] MEDS: ACETAMINOPHEN TAB 650MG DOSE (2X325MG) PO PRN ×2 (09:30→16:33)
[2019-02-22] MEDS: cefTRIAXone SOD 1 GM in D5W MINI-BAG PLUS 50 ML IV SCH (13:51)
[2019-02-22 16:00] VITALS: BP 141/83
[2019-02-22] MEDS: RIVAROXABAN 20 MG TAB (XARELTO) PO SCH (21:08)
[2019-02-22] MEDS: OLANZapine 5 MG TAB PO SCH (21:08)
[2019-02-22] MEDS: rOPINIRole 1MG TAB PO SCH (21:08)
[2019-02-22 22:00] VITALS: BP 127/72
[2019-02-23 06:00] VITALS: BP 139/70
[2019-02-23 06:11] LABS: BASO # 0.1 10^3/uL (0.0-0.2); BASO % 1.5 % (0.0-1.0); EOS # 0.1 10^3/uL (0.0-0.50); EOS % 2.6 % (0.0-3.0); HEMATOCRIT 34.9 % (36.0-47.0); HEMOGLOBIN 10.8 g/dl (12.0-15.5); LYMPH # 2.3 10^3/uL (1.5-4.5); LYMPH % 43.7 % (24.0-44.0); MEAN CORPUSCULAR HEMOGLOBIN 28.1 pg (27.0-33.0); MEAN CORPUSCULAR HGB CONC 30.9 g/dl (32.0-36.5); MEAN CORPUSCULAR VOLUME 90.9 fl (80.0-96.0); MONO # 0.4 10^3/uL (0.0-0.8); MONO % 7.1 % (0.0-5.0); NEUTROPHILS # 2.4 10^3/uL (1.8-7.7); NEUTROPHILS % 44.4 % (36.0-66.0); PLATELET COUNT, AUTOMATED 376 10^3/uL (150-450); RED BLOOD COUNT 3.84 10^6/uL (4.00-5.40); WHITE BLOOD COUNT 5.4 10^3/uL (4.0-10.0)
[2019-02-23] MEDS: NORCO, ANEXSIA 5/325MG TABLET (HYDROcodone/ACETAMINOPHEN) PO PRN ×2 (06:29→14:16)
[2019-02-23 06:36] LABS: BLOOD UREA NITROGEN 12 MG/DL (7-18); C REACTIVE PROTEIN QUANTITATIV 4.21 MG/DL (0.00-0.30); CALCIUM LEVEL 8.5 MG/DL (8.5-10.1); CARBON DIOXIDE LEVEL 31 MEQ/L (21-32); CHLORIDE LEVEL 103 MEQ/L (98-107); CREATININE FOR GFR 0.63 MG/DL (0.55-1.30); GLOMERULAR FILTRATION RATE > 60.0 (>60); GLUCOSE, FASTING 184 MG/DL (70-100); POTASSIUM SERUM 4.1 MEQ/L (3.5-5.1); SODIUM LEVEL 138 MEQ/L (136-145)
[2019-02-23] MEDS: IPRATROPIUM 0.5MG/ALBUTEROL 2.5MG INH SOL UD 3ML (DUONEB)(J7620) NEB SCH ×4 (07:41→20:28)
[2019-02-23] MEDS: DIVALPROEX 250MG *ER* TAB PO SCH ×3 (08:28→21:03)
[2019-02-23] MEDS: CitaloPRAM (CeleXA) 10 MG TABLET PO SCH (08:28)
[2019-02-23] MEDS: OLANZapine 10 MG TAB PO SCH (08:28)
[2019-02-23] MEDS: clonazePAM 0.5 MG TAB PO SCH ×3 (08:28→21:03)
[2019-02-23] MEDS: HumaLOG INSULIN (NovoLOG) PER UNIT SC SCH ×4 (08:28→20:56)
[2019-02-23] MEDS: lamoTRIgine 100MG TAB PO SCH ×2 (08:29→21:04)
[2019-02-23] MEDS: tiZANidine 4 MG TAB PO SCH ×3 (08:29→21:04)
[2019-02-23] MEDS: diphenhydrAMINE 25 MG CAP PO SCH ×2 (08:29→21:04)
[2019-02-23] MEDS: OMEPRAZOLE 20 MG CAP PO SCH (08:29)
[2019-02-23] MEDS: FLUoxetine 20 MG CAP PO SCH (08:29)
[2019-02-23 14:00] VITALS: BP 124/87
[2019-02-23] MEDS: cefTRIAXone SOD 1 GM in D5W MINI-BAG PLUS 50 ML IV SCH (14:15)
[2019-02-23] MEDS: ACETAMINOPHEN TAB 650MG DOSE (2X325MG) PO PRN ×2 (16:08→21:04)
[2019-02-23] MEDS ORDERED: CEFDINIR 300 MG CAP (OMNICEF) PO ONE (17:00)
[2019-02-23] MEDS ORDERED: CEFDINIR 300 MG CAP (OMNICEF) PO SCH (21:00)
[2019-02-23] MEDS: rOPINIRole 1MG TAB PO SCH (21:03)
[2019-02-23] MEDS: RIVAROXABAN 20 MG TAB (XARELTO) PO SCH (21:03)
[2019-02-23] MEDS: OLANZapine 5 MG TAB PO SCH (21:03)
[2019-02-23 22:00] VITALS: BP 124/74
--- NOTE | 2019-02-24 00:22 | IPNPDOC ---
Subjective Date Seen The patient was seen on 02/23/19. Subjective Chief Complaint/HPI No concerns expressed by nursing staff General: Reports: ROS Unobtainable Objective Physical Examination General Exam: Positive: No Acute Distress ENT Exam: Positive: Mucous membr. moist/pink Neck Exam: Positive: Supple, Other (+ trach with collar) Chest Exam: Positive: Diminished; Negative: Rales, Rhonchi, Wheezing Heart Exam: Positive: Rate Normal, Normal S1, Normal S2 Abdomen Exam: Positive: Normal bowel sounds Extremity Exam: Negative: Edema A-FIB/CHADSVASC A-FIB History Current/History of A-Fib/PAF?: No Assessment /Plan Assessment 02/23: Changed to cefdinir, likely to DC tomorrow. Patient agitated, but not in respiratory distress. -- CDT Problems (1) Right upper lobe pneumonia Status: Acute Response to Treatment: Stable Discussed With: Nurse Problem Specific Plan: Monitor Clinically, Repeat Labs Problem Text: 02/23/19: Patient remains afebrile. BC negative. We could probably transition to oral abx 02/21/19: Patient a-febrile. BC negative x 24 hours. She is currently on Ceftriaxone 1 gm D2. WBC 7.0 On azithro/ rocephin D2, Sats stable. WBC down slightly. Afebrile. (2) DM2 (diabetes mellitus, type 2) Status: Chronic Response to Treatment: Stable Problem Text: 02/21/19: SSI per protocol. BG 206 (3) Tracheostomy present Status: Chronic Response to Treatment: Stable (4) GERD (gastroesophageal reflux disease) Status: Chronic Plan/VTE VTE Prophylaxis Ordered?: Yes (Xarelto ) VS, I&O, 24H, Fishbone Vital Signs/I&O Vital Signs Date Time Temp Pulse Resp B/P (MAP) Pulse Ox O2 Delivery O2 Flow Rate FiO2 02/23/19 07:42 Trach Collar 28 02/23/19 07:15 20 02/23/19 06:00 98.0 90 139/70 (93) 94 02/22/19 21:00 15.0 I&O- Last 24 Hours up to 6 AM 02/23/19 06:00 Intake Total 1320 ml Output Total 100 ml Balance 1220 ml Laboratory Data 24H LABS Laboratory Tests 2 02/22/19 11:21: Bedside Glucose (Misc Panel) 193H 02/22/19 16:37: Bedside Glucose (Misc Panel) 243H 02/22/19 20:32: Bedside Glucose (Misc Panel) 276H 02/23/19 05:19: Immature Granulocyte % (Auto) 0.7, White Blood Count 5.4, Red Blood Count 3.84L, Hemoglobin 10.8L, Hematocrit 34.9L, Mean Corpuscular Volume 90.9, Mean Corpuscular Hemoglobin 28.1, Mean Corpuscular Hemoglobin Concent 30.9L, Red Cell Distribution Width 13.3, Platelet Count 376, Neutrophils (%) (Auto) 44.4, Lymphocytes (%) (Auto) 43.7, Monocytes (%) (Auto) 7.1H, Eosinophils (%) (Auto) 2.6, Basophils (%) (Auto) 1.5H, Neutrophils # (Auto) 2.4, Lymphocytes # (Auto) 2.3, Monocytes # (Auto) 0.4, Eosinophils # (Auto) 0.1, Basophils # (Auto) 0.1, Nucleated Red Blood Cells % (auto) 0.0, Anion Gap 4L, Glomerular Filtration Rate > 60.0, Blood Urea Nitrogen 12, Creatinine 0.63, Sodium Level 138, Potassium Lev el 4.1, Chloride Level 103, Carbon Dioxide Level 31, Calcium Level 8.5, C- Reactive Protein, Quantitative 4.21H CBC/BMP Laboratory Tests 02/23/19 05:19 Red Blood Count 3.84 L, Mean Corpuscular Volume 90.9, Mean Corpuscular Hemoglobin 28.1, Mean Corpuscular Hemoglobin Concent 30.9 L, Red Cell Distribution Width 13.3, Neutrophils (%) (Auto) 44.4, Lymphocytes (%) (Auto) 43.7, Monocytes (%) (Auto) 7.1 H, Eosinophils (%) (Auto) 2.6, Basophils (%) (Auto) 1.5 H, Neutrophils # (Auto) 2.4, Lymphocytes # (Auto) 2.3, Monocytes # (Auto) 0.4, Eosinophils # (Auto) 0.1, Basophils # (Auto) 0.1, Calcium Level 8.5 Microbiology Microbiology 02/19/19 Blood Culture - Preliminary, Resulted No Growth after 72 hours. All specime... 4/28/19 Blood Culture - Preliminary, Resulted No Growth after 72 hours. All specime... ZOFIA HAIRP February 23, 2019 10:33 IRA WONG DO February 24, 2019 00:22
[2019-02-24] MEDS: ACETAMINOPHEN TAB 650MG DOSE (2X325MG) PO PRN (05:31)
[2019-02-24 06:00] VITALS: BP 142/98
[2019-02-24] MEDS: IPRATROPIUM 0.5MG/ALBUTEROL 2.5MG INH SOL UD 3ML (DUONEB)(J7620) NEB SCH ×2 (07:02→11:20)
[2019-02-24] MEDS: HumaLOG INSULIN (NovoLOG) PER UNIT SC SCH ×2 (07:30→12:49)
[2019-02-24] MEDS ORDERED: CEFDINIR 300 MG CAP (OMNICEF) PO SCH (09:00)
[2019-02-24] MEDS: FLUoxetine 20 MG CAP PO SCH (09:34)
[2019-02-24] MEDS: CitaloPRAM (CeleXA) 10 MG TABLET PO SCH (09:35)
[2019-02-24] MEDS: DIVALPROEX 250MG *ER* TAB PO SCH (09:35)
[2019-02-24] MEDS: clonazePAM 0.5 MG TAB PO SCH (09:35)
[2019-02-24] MEDS: lamoTRIgine 100MG TAB PO SCH (09:35)
[2019-02-24] MEDS: diphenhydrAMINE 25 MG CAP PO SCH (09:35)
[2019-02-24] MEDS: OMEPRAZOLE 20 MG CAP PO SCH (09:35)
[2019-02-24] MEDS: OLANZapine 10 MG TAB PO SCH (09:35)
[2019-02-24] MEDS: tiZANidine 4 MG TAB PO SCH (09:36)
[2019-02-24] MEDS ORDERED: IPRA0.00 NEB (09:42)
[2019-02-24] MEDS ORDERED: CEFD300CAP PO (09:42)
--- NOTE | 2019-02-24 17:34 | DS.PDOC ---
Discharge Summary General Date of Admission Feb 19, 2019 at 15:33 Date of Discharge 02/24/19 Primary Care Physician: Ray Britton MD Attending Physician: IRA WONG DO Discharge Summary PROCEDURES PERFORMED DURING STAY: [None]. ADMITTING DIAGNOSES: 1. Pneumonia COMPLICATIONS/CHIEF COMPLAINT: Rt Upper Lobe Pneumonia. HISTORY OF PRESENT ILLNESS: Barbara is a patient of Dr. Britton'cain who presented to the [facility] ER today with Jennifer, her caregiver, because she was having increased secretions from her trach. They report that 2-3 days prior to admission she began not feeling well. She was having increased cough and clear rhinorrhea. Initially they thought this was a cold and treated as such. On the morning of admission she began to have significant back discomfort and associated nausea. She denied any vomiting or diarrhea. Additionally when she coughed she was getting a thick purulent discharge through her trach. This encouraged him to seek care at the emergency department. While here she had a chest x-ray that shows a fairly obvious right upper lobe consolidative infiltration HOSPITAL COURSE: 02/23/19: Patient was treated with Azithrimycin and Ceftriaxone initially. She was transitioned to Ceftriaxone only then to po Cedninir 300 mg po bid. She progressed well through her hospital course. Cleared PT and was safe for discharge on 02/24/19 DISCHARGE MEDICATIONS: Please see below. ALLERGIES: Please see below. PHYSICAL EXAMINATION ON DISCHARGE: VITAL SIGNS: Please see below. GENERAL: Alert, non-verbal HEENT: unremarkable NECK: Trach without secretions around site CARDIOVASCULAR EXAMINATION: RRR RESPIRATORY EXAMINATION: CTA ABDOMINAL EXAMINATION: Obese, soft, non-distended EXTREMITIES: no edema LABORATORY DATA: Please see below. IMAGING: Chest X-ray: Patchy density is present in the right upper lobe consistent with an infiltrate. The left lung is clear. The heart is normal in size. The pulmonary vasculature is normal in appearance. A tracheostomy is present. Impression: Right upper lobe infiltrate. PROGNOSIS: Good ACTIVITY: As tolerated. DISCHARGE PLAN: Home with care give DISCHARGE INSTRUCTIONS: 1. F/U with PCP in one week Vital Signs/I&Os Vital Signs Date Time Temp Pulse Resp B/P (MAP) Pulse Ox O2 Delivery O2 Flow Rate FiO2 02/24/19 06:00 97.0 105 14 142/98 (113) 95 02/23/19 22:00 15.0 02/23/19 18:00 28 02/23/19 07:42 Trach Collar I&O- Last 24 Hours up to 6 AM 02/24/19 06:00 Intake Total 930 ml Output Total 500 ml Balance 430 ml Laboratory Data Labs 24H Laboratory Tests 2 02/23/19 17:27: Bedside Glucose (Misc Panel) 267H 02/23/19 20:53: Bedside Glucose (Misc Panel) 193H 02/24/19 05:59: Bedside Glucose (Misc Panel) 175H 02/24/19 12:11: Bedside Glucose (Misc Panel) 191H FSBS Laboratory Tests Test 02/23/19 17:27 02/23/19 20:53 02/24/19 05:59 02/24/19 12:11 Range/Units Bedside Glucose (Misc Panel) 267 193 175 191 70-105 MG/DL Microbiology Microbiology 02/19/19 Blood Culture - Final, Complete NO GROWTH AFTER 5 DAYS 02/19/19 Blood Culture - Final, Complete NO GROWTH AFTER 5 DAYS Discharge Medications Scheduled Cefdinir (Cefdinir) 300 Mg Capsule, 300 MG PO BID Citalopram Hydrobromide (Citalopram HBr) 10 Mg Tab, 10 MG PO DAILY, (Reported) Clonazepam (Clonazepam) 0.5 Mg Tablet, 0.25 MG PO BID, (Reported) AM/AFTERNOON Clonazepam (Clonazepam) 0.5 Mg Tablet, 1 MG PO QHS, (Reported) Dextromethorphan HBr/Quinidine (Nuedexta 20-10 mg Capsule) 1 Each Capsule, 1 CAP PO BID, (Reported) TAKES AFTERNOON/QHS Diphenhydramine HCl (Benadryl) 25 Mg Cap, 25 MG PO BID, (Reported) Divalproex Sodium (Divalproex Sodium ER) 250 Mg Tab.er.24h, 250 MG PO TID, (Reported) Fluoxetine Hcl (Fluoxetine HCl) 20 Mg Capsule, 20 MG PO DAILY, (Reported) Insulin Glargine,Hum.rec.anlog (Basaglar Kwikpen U-100) 100 Unit/1 Ml Insuln.pen, 10 UNIT SC QHS, (Reported) Ipratropium/Albuterol Sulfate (Iprat-Albut 0.5-3(2.5) mg/3 ml) 3 Ml Ampul.neb, 3 ML NEB QIDP Lamotrigine (Lamotrigine) 100 Mg Tablet, 100 MG PO BID, (Reported) Olanzapine (Olanzapine) 15 Mg Tablet, 15 MG PO QHS, (Reported) Olanzapine (Olanzapine) 10 Mg Tablet, 10 MG PO DAILY, (Reported) Omeprazole (Omeprazole) 40 Mg Cap, 40 MG PO DAILY, (Reported) Rivaroxaban (Xarelto) 20 Mg Tab, 20 MG PO QHS, (Reported) Ropinirole HCl (Ropinirole HCl) 1 Mg Tablet, 1 MG PO QHS, (Reported) Tizanidine HCl (Tizanidine HCl) 4 Mg Cap, 8 MG PO TID, (Reported) Scheduled PRN Docusate Sodium (Colace) 100 Mg Cap, 100 MG PO DAILY PRN for CONSTIPATION, (Reported) Guaifenesin (Mucinex) 600 Mg Tab.er.12h, 600 MG PO BID PRN for CONGESTION, (Reported) Hydrocodone/Acetaminophen ([place] 5-325 Tablet) 1 Tab Tab, 1 TAB PO Q6H PRN for PAIN, (Reported) Levalbuterol HCl (Levalbuterol HCl) 1.25 Mg/3 Ml Neb, 1.25 MG INH Q2H PRN for SHORTNESS OF BREATH, (Reported) Ondansetron HCl (Zofran) 4 Mg Tab, 4 MG PO for NAUSEA OR VOMITING, (Reported) Allergies Coded Allergies: doxycycline (Verified Allergy, Unknown, 02/19/19) linezolid (Verified Allergy, Unknown, 02/19/19) pregabalin (Verified Allergy, Unknown, 02/19/19) tetracycline (Verified Allergy, Unknown, 02/19/19) varenicline (Verified Allergy, Unknown, 02/19/19) ZOFIA HAIR February 24, 2019 17:33
== END 2019-02-24 14:20 | disposition home or self-care (01) | DRG 193 ==
LOC: M ED 12:05 → M ED INP 15:33 → M MSPAV 18:04
PROVIDERS: ADMIT Family Medicine; ATTEND Family Medicine
DX: J18.1 Lobar pneumonia, unspecified organism (principal); G82.50 Quadriplegia, unspecified; Z79.899 Other long term (current) drug therapy; Z88.8 Allergy status to other drugs, medicaments and biological substances; K21.9 Gastro-esophageal reflux disease without esophagitis; Z93.0 Tracheostomy status; E11.9 Type 2 diabetes mellitus without complications; J45.909 Unspecified asthma, uncomplicated; Z86.718 Personal history of other venous thrombosis and embolism

== ENCOUNTER 2019-03-02 14:50 | Emergency (ER) | payer MEDICARE, MEDICAID ==
[~2019-03-02] VITALS: Ht 165.1 cm; Wt 109.1 kg
[~2019-03-02 14:50] MED LIST changes: +BASA100I SC; +CEFD300CAP PO; +FLUO20CA19 PO; +MUCI600T31 PO; +OLAN15TA PO
[2019-03-02] MEDS ORDERED: methylPREDNISolone INJ 125 MG/2 ML VIAL (J2930) IV ONE (17:45)
[2019-03-02 18:00] LABS: BASO # 0.1 10^3/uL (0.0-0.2); BASO % 0.8 % (0.0-1.0); EOS % 0.3 % (0.0-3.0); HEMOGLOBIN 12.5 g/dl (12.0-15.5); LYMPH # 2.5 10^3/uL (1.5-4.5); LYMPH % 28.7 % (24.0-44.0); MEAN CORPUSCULAR HEMOGLOBIN 29.1 pg (27.0-33.0); MEAN CORPUSCULAR HGB CONC 32.1 g/dl (32.0-36.5); MEAN CORPUSCULAR VOLUME 90.7 fl (80.0-96.0); MONO # 0.5 10^3/uL (0.0-0.8); NEUTROPHILS # 5.5 10^3/uL (1.8-7.7); NEUTROPHILS % 63.9 % (36.0-66.0); PLATELET COUNT, AUTOMATED 369 10^3/uL (150-450); WHITE BLOOD COUNT 8.6 10^3/uL (4.0-10.0)
[2019-03-02 18:15] LABS: INR 1.26
[2019-03-02 18:16] LABS: PARTIAL THROMBOPLASTIN TIME 31.5 SECONDS (25.4-37.6)
[2019-03-02 18:19] LABS: ALBUMIN 3.7 GM/DL (3.2-5.2); ALT/SGPT 30 U/L (12-78); BILIRUBIN,DIRECT < 0.1 MG/DL (0.0-0.2); BILIRUBIN,TOTAL 0.3 MG/DL (0.2-1.0); BLOOD UREA NITROGEN 10 MG/DL (7-18); CALCIUM LEVEL 9.3 MG/DL (8.5-10.1); CARBON DIOXIDE LEVEL 27 MEQ/L (21-32); CHLORIDE LEVEL 102 MEQ/L (98-107); CPK CREATINE PHOSPHOKINASE 89 U/L (26-192); CREATININE FOR GFR 0.75 MG/DL (0.55-1.30); GLOMERULAR FILTRATION RATE > 60.0 (>60); GLUCOSE, FASTING 177 MG/DL (70-100); LIPASE 203 U/L (73-393); MB/CK RELATIVE INDEX 2.47 (< OR =4); POTASSIUM SERUM 4.5 MEQ/L (3.5-5.1); SODIUM LEVEL 139 MEQ/L (136-145); TOTAL PROTEIN 7.9 GM/DL (6.4-8.2); TROPONIN I < 0.02 NG/ML (< 0.10)
[2019-03-02] MEDS ORDERED: ISOVUE-370 76% 100ML VIAL (Q9967) As Ordered ONE (18:26)
[2019-03-02] MEDS: NORCO, ANEXSIA 5/325MG TABLET (HYDROcodone/ACETAMINOPHEN) PO ONE ×2 (19:00→19:03)
--- NOTE | 2019-03-02 19:52 | REPVR ---
EXAM: CT Angiography Chest With Contrast EXAM DATE/TIME: 03/02/2019 6:36 PM CLINICAL HISTORY: 33 years old, female; Chest pain; Type not specified TECHNIQUE: Imaging protocol: Axial computed tomographic angiography images of the chest with intravenous contrast using CT angiography protocol. Coronal and sagittal reformatted images were created and reviewed. 3D rendering: MIP reconstructed images were created and reviewed. Radiation optimization: All CT scans at this facility use at least one of these dose optimization techniques: automated exposure control; mA and/or kV adjustment per patient size (includes targeted exams where dose is matched to clinical indication); or iterative reconstruction. Contrast material: ISOVUE 370; Contrast volume: 100 ml; Contrast route: IV; COMPARISON: CT ANGIO CHEST 09/07/2017 3:22 PM FINDINGS: Tubes, catheters and devices: The distal tip of the tracheostomy tube is 5.7 cm above the jef. Pulmonary arteries: Normal. No pulmonary emboli. Aorta: Normal. No aortic aneurysm. No aortic dissection. Lungs: Subsegmental atelectasis noted in the posterior segment of the right upper lobe. Adjacent groundglass density noted in the atelectatic sup segment. Focal area of interstitial thickening in the right middle lobe. Pleural space: Normal. No pneumothorax. No pleural effusion. Heart: Normal. No cardiomegaly. No pericardial effusion. Liver: The liver is low in density. Lymph nodes: Unremarkable. No enlarged lymph nodes. Bones/joints: Unremarkable. No acute fracture. Soft tissues: Unremarkable. IMPRESSION: 1. No acute pulmonary embolism. 2. Subsegmental atelectasis/pneumonitis in the right upper lobe posterior segment 3. Hepatic steatosis Electronically signed by: Claribel Tang On 03/02/2019 19:52:03 PM
[2019-03-02 19:55] VITALS: BP 135/73
[2019-03-02] MEDS ORDERED: MEDR4PAK PO (20:01)
--- NOTE | 2019-03-03 07:36 | ECGEPIP ---
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
== END 2019-03-02 20:10 | disposition home or self-care (01) ==
LOC: M ED 14:50
DX: R07.81 Pleurodynia (principal); E11.9 Type 2 diabetes mellitus without complications; F33.9 Major depressive disorder, recurrent, unspecified; F41.9 Anxiety disorder, unspecified; D68.2 Hereditary deficiency of other clotting factors; Z87.01 Personal history of pneumonia (recurrent); Z79.4 Long term (current) use of insulin; Z79.899 Other long term (current) drug therapy; Z88.1 Allergy status to other antibiotic agents; Z88.8 Allergy status to other drugs, medicaments and biological substances
CPT/HCPCS: 71275; 80048; 80076; 82550; 82553; 83690; 84484; 85025; 85610; 85730; 93005; 93041; 94760; 96374; 99285; J2930; Q9967

== ENCOUNTER 2019-04-25 17:14 | Emergency (ER) | payer MEDICARE, MEDICAID ==
[~2019-04-25] VITALS: Ht 162.6 cm; Wt 112.7 kg
[~2019-04-25 17:14] MED LIST changes: +CLON0.5T2 PO; -CLON0.5T8 PO; -DIPH25CA PO; +DIPH25CA32 PO; -LAMO100T PO; +LAMO100T3 PO; -LAMO1TAB PO; +LAMO25TA94 PO; -LORA0.5T11 PO; +LORA0.5T5 PO; -LORA1TAB12 PO; +LORA1TAB4 PO; +MEDR4PAK PO; -OMEP40CA2 PO; +OMEP40CA97 PO; +ONDA-83 PO; -ONDA4TAB5 PO
[2019-04-25 17:15] VITALS: BP 132/88
[2019-04-25] MEDS ORDERED: MORPHINE 2 MG/ML 1ML VIAL (J2270) IV ONE (19:00)
[2019-04-25 20:28] LABS: BLOOD UREA NITROGEN 8 MG/DL (7-18); CALCIUM LEVEL 9.2 MG/DL (8.5-10.1); CARBON DIOXIDE LEVEL 26 MEQ/L (21-32); CHLORIDE LEVEL 102 MEQ/L (98-107); GLOMERULAR FILTRATION RATE > 60.0 (>60); GLUCOSE, FASTING 205 MG/DL (70-100); POTASSIUM SERUM 4.4 MEQ/L (3.5-5.1); SODIUM LEVEL 138 MEQ/L (136-145)
[2019-04-25] MEDS ORDERED: ISOVUE-370 76% 100ML VIAL (Q9967) As Ordered ONE (20:52)
[2019-04-25 21:33] LABS: BASO # 0.1 10^3/uL (0.0-0.2); BASO % 1.3 % (0.0-1.0); EOS % 0.6 % (0.0-3.0); HEMATOCRIT 36.3 % (36.0-47.0); LYMPH # 1.4 10^3/uL (1.5-4.5); LYMPH % 20.4 % (24.0-44.0); MEAN CORPUSCULAR HEMOGLOBIN 29.4 pg (27.0-33.0); MEAN CORPUSCULAR HGB CONC 33.1 g/dl (32.0-36.5); MONO # 0.6 10^3/uL (0.0-0.8); MONO % 8.1 % (0.0-5.0); NEUTROPHILS # 4.8 10^3/uL (1.8-7.7); PLATELET COUNT, AUTOMATED 272 10^3/uL (150-450); RED BLOOD COUNT 4.08 10^6/uL (4.00-5.40)
--- NOTE | 2019-04-25 22:19 | REPVR ---
EXAM: CT Neck With Contrast EXAM DATE/TIME: 04/25/2019 9:11 PM CLINICAL HISTORY: 33 years old, female; Neck pain; Prior surgery; Additional info: C/O neck pain behind trach, R/O abscess/infection TECHNIQUE: Imaging protocol: Axial computed tomography images of the neck with intravenous contrast. Coronal and sagittal reformatted images were created and reviewed. Radiation optimization: All CT scans at this facility use at least one of these dose optimization techniques: automated exposure control; mA and/or kV adjustment per patient size (includes targeted exams where dose is matched to clinical indication); or iterative reconstruction. Contrast material: ISOVUE 370; Contrast volume: 75 ml; Contrast route: IV; COMPARISON: CT Neck with contrast 11/02/2015 7:26 PM FINDINGS: Tracheostomy tube in place. No fluid collection. Nasopharynx: Normal. Oropharynx: Normal. No significant tonsillar enlargement. Hypopharynx: Normal. Larynx: Normal. Normal epiglottis. Retropharyngeal space: Normal. Submandibular/Parotid glands: Normal. Glands are normal in size. Thyroid: Normal. No enlarged or calcified nodules. Lymph nodes: Normal. No lymphadenopathy. Trachea: Visualized trachea is unremarkable. Lungs: Normal as visualized. Vasculature: No acute findings. Bones/joints: Normal. No acute fracture. Soft tissues: Normal. No significant soft tissue swelling. Cerumen in left external auditory canal. IMPRESSION: No acute findings. Tracheostomy tube in place. No fluid collection. Electronically signed by: Kary Cruz On 04/25/2019 22:18:39 PM
--- NOTE | 2019-04-26 07:52 | REP ---
REASON FOR EXAM: Previous history of right upper lobe pneumonia, now having tracheal discomfort. The tracheostomy tube is unchanged. The technique utilized in obtaining the radiograph has magnified the cardiac silhouette and accentuated the interstitial markings. The cardiomediastinal silhouette is stable. The heart is not enlarged. The lung torres are clear. The right upper lobe pneumonia seen previously has resolved. There are no acute patchy parenchymal opacities or pleural effusions. The osseous structures stable and intact. IMPRESSION: No acute cardiopulmonary disease. Electronically Signed by Drew Storey DO 04/26/2019 03:42 P
== END 2019-04-25 22:51 | disposition home or self-care (01) ==
LOC: M ED 17:14
DX: M54.2 Cervicalgia (principal); Z93.0 Tracheostomy status; E11.9 Type 2 diabetes mellitus without complications; F41.9 Anxiety disorder, unspecified; F43.10 Post-traumatic stress disorder, unspecified; D68.59 Other primary thrombophilia; Z79.899 Other long term (current) drug therapy; Z79.01 Long term (current) use of anticoagulants; Z79.4 Long term (current) use of insulin; Z88.1 Allergy status to other antibiotic agents; Z88.8 Allergy status to other drugs, medicaments and biological substances
CPT/HCPCS: 36415; 70491; 71046; 80048; 85025; 96374; 99284; J2270; Q9967

== ENCOUNTER 2019-05-07 00:10 | Emergency (ER) | payer MEDICARE, MEDICAID ==
[~2019-05-07] VITALS: Ht 162.6 cm; Wt 112.7 kg
[~2019-05-07 00:10] MED LIST changes: -CLON0.5T2 PO; +CLON0.5T8 PO; +DIPH25CA PO; -DIPH25CA32 PO; +LAMO100T PO; -LAMO100T3 PO; +LORA0.5T11 PO; -LORA0.5T5 PO; +LORA1TAB12 PO; -LORA1TAB4 PO; +OMEP40CA2 PO; -OMEP40CA97 PO; -ONDA-83 PO; +ONDA4TAB5 PO
[2019-05-07 01:06] LABS: BASO # 0.1 10^3/uL (0.0-0.2); EOS # 0.1 10^3/uL (0.0-0.50); EOS % 1.3 % (0.0-3.0); HEMATOCRIT 38.5 % (36.0-47.0); HEMOGLOBIN 12.7 g/dl (12.0-15.5); LYMPH # 3.5 10^3/uL (1.5-4.5); LYMPH % 45.2 % (24.0-44.0); MEAN CORPUSCULAR HEMOGLOBIN 29.7 pg (27.0-33.0); MONO # 0.7 10^3/uL (0.0-0.8); MONO % 9.3 % (0.0-5.0); NEUTROPHILS # 3.3 10^3/uL (1.8-7.7); NEUTROPHILS % 42.9 % (36.0-66.0); PLATELET COUNT, AUTOMATED 332 10^3/uL (150-450); RED BLOOD COUNT 4.28 10^6/uL (4.00-5.40); WHITE BLOOD COUNT 7.7 10^3/uL (4.0-10.0)
[2019-05-07 01:30] LABS: BLOOD UREA NITROGEN 15 MG/DL (7-18); CALCIUM LEVEL 9.5 MG/DL (8.5-10.1); CARBON DIOXIDE LEVEL 22 MEQ/L (21-32); CHLORIDE LEVEL 104 MEQ/L (98-107); CPK CREATINE PHOSPHOKINASE 122 U/L (26-192); CREATININE FOR GFR 0.87 MG/DL (0.55-1.30); GLOMERULAR FILTRATION RATE > 60.0 (>60); GLUCOSE, FASTING 235 MG/DL (70-100); MB/CK RELATIVE INDEX 3.28 (< OR =4); SODIUM LEVEL 139 MEQ/L (136-145); TROPONIN I < 0.02 NG/ML (< 0.10)
[2019-05-07 03:15] VITALS: BP 109/57
--- NOTE | 2019-05-07 08:52 | REP ---
Portable chest x-ray: Single AP view. History: Chest pain. Comparison study: April 25, 2019. Findings: Current radiograph is underexposed. EKG electrodes are seen. No infiltrate is seen. Heart is not enlarged. The tip of the tracheostomy tube is seen in good position at the top of the imaging field of view. Impression: Tracheostomy tube is seen at the top of the imaging field of view. No infiltrate seen. Electronically Signed by Pancho White MD 05/07/2019 08:44 A
--- NOTE | 2019-05-08 17:07 | ECGEPIP ---
[facility] - ED Test Date: 2019-05-07 Pat Name: ROSEMARIE ANGUIANO Department: Room: - Gender: Female Rail Car Repairman: RUBEN : 1985 Requested By: GULSHAN Mendoza Order Number: [id number] Reading MD: Waylon Oliveira Measurements Intervals [place] Rate: 125 P: 50 ID: [id number] QRS: 30 QRSD: 77 T: 50 QT: 336 QTc: 485 Interpretive Statements SINUS TACHYCARDIA LOW QRS VOLTAGE IN PRECORDIAL LEADS NONSPECIFIC T-WAVE ABNORMALITY Prolonged QTc interval Similar to tracing done 03-02-19 Electronically Signed on 05-08-2019 17:06:39 EDT by Waylon Oliveira
== END 2019-05-07 03:55 | disposition home or self-care (01) ==
LOC: M ED 00:10
DX: R07.89 Other chest pain (principal); R00.0 Tachycardia, unspecified; E11.9 Type 2 diabetes mellitus without complications; F89 Unspecified disorder of psychological development; D68.51 Activated protein C resistance; Z87.820 Personal history of traumatic brain injury; Z79.899 Other long term (current) drug therapy; Z79.01 Long term (current) use of anticoagulants; Z79.4 Long term (current) use of insulin; Z88.8 Allergy status to other drugs, medicaments and biological substances; Z88.1 Allergy status to other antibiotic agents; Z93.0 Tracheostomy status

== ENCOUNTER 2019-06-17 06:46 | Emergency (ER) | payer MEDICARE, MEDICAID ==
[~2019-06-17 06:46] MED LIST changes: -DIPH25CA PO; +DIPH25CA32 PO
== END 2019-06-17 09:54 | disposition expired ==
LOC: EDBD 06:46 → EDUNIT# 06:46 → M ED 06:46
DX: J95.03 Malfunction of tracheostomy stoma (principal); I46.9 Cardiac arrest, cause unspecified